=== PATIENT | male | born 1945 | race Caucasian/White ===

== ENCOUNTER 2017-04-06 15:03 | Emergency (ER) | payer BC ==
[~2017-04-06] VITALS: Ht 177.8 cm; Wt 97.4 kg
[~2017-04-06 15:03] MED LIST: ALL300 PO; ASPEC325 PO; ATOR10TA82 PO; DVN80 PO; SILD1TAB11 PO; TRIA0.1C55 TD
[2017-04-06 15:11] VITALS: TEMP 36.7; Ht 177.8 cm; Wt 97.4 kg
[2017-04-06] MEDS ORDERED: ACETAMINOPHEN 325 MG TAB PO STA (15:16)
[2017-04-06] MEDS ORDERED: KETOROLAC TROMETHAMINE 30 MG/ML VIAL IV STA (15:16)
[2017-04-06 16:12] LABS: HEMATOCRIT 44.5 % (42-52); HEMOGLOBIN 15.3 g/dL (14.0-18.0); MEAN CELL VOLUME 93.9 fL (80-100); MEAN CORPUSCULAR HEMOGLOBIN 32.3 pg (25-34); MEAN CORPUSCULAR HGB CONC 34.4 g/dl (32-36); MEAN PLATELET VOLUME 9.8 fL (7.4-10.4); PLATELET COUNT 190 K/uL (130-400); RED CELL DISTRIBUTION WIDTH CV 13.7 % (11.5-14.5); RED CELL DISTRIBUTION WIDTH SD 47.2 fL (36.4-46.3); WHITE BLOOD COUNT 8.26 K/uL (4.8-10.8)
--- NOTE | 2017-04-06 16:25 | EMERGENCY ROOM VISIT NOTE ---
History Report prepared by [place]: Berenice Kiran Under the Supervision of: Dr. Jaleel Mendez M.D. First contact with patient: 15:15 Chief Complaint: TESTICULAR PAIN Stated Complaint: SWOLLEN R TESTICLE History of Present Illness The patient is a 72 year old male who presents to the Emergency Room with complaints of constant right testicular pain starting 2 weeks ago. The patient has a history of hydrocele. 2 weeks ago, he started having increased swelling and pain to his right testicle. He has seen his doctor and has had an ultrasound and X-ray. He was on antibiotics for epididymitis to no significant relief. He was unable to sleep last night because of the pain. He currently rates his discomfort as a 9/10 in severity. He is also having pain down into his right leg. He denies any trauma. The pain does not worsen with urination. He has a history of kidney stones. His current pain is not as severe as his kidney stone. He was able to drive himself to the ED. He denies any fever or vomiting. Source of History: patient Onset: 2 weeks ago Position: other (right testicle) Symptom Intensity: 9/10 Quality: other (swelling, pain) Timing: constant Associated Symptoms: No fevers, No vomiting Note: Pt reports right leg pain. Review of Systems See HPI for pertinent positives & negatives. A total of 10 systems reviewed and were otherwise negative. Past Medical & Surgical Medical Problems: (1) Hydrocele (2) Kidney stone Family History Cancer FH: heart disease Hypertension Social History Smoking Status: Former Smoker Marital Status: Occupation Status: retired Current/Historical Medications Scheduled Allopurinol (Zyloprim *), 300 MG PO QAM Allopurinol (Allopurinol), 300 MG PO QAM Atorvastatin (Atorvastatin Calcium), 20 MG PO QAM Oxycodone HCl (Oxycodone HCl), 5 MG PO DAILY Sildenafil Citrate (Viagra), 25 MG PO PRN Valsartan (Valsartan), 320 MG PO DAILY Allergies Coded Allergies: NO KNOWN DRUG ALLERGIES (Verified Allergy, Unknown, ., 11/01/14) Peanut Butter Flavor (Unverified Allergy, Unknown, LIP AND EYE SWELLING, ) ALLERY TO PEANUT BUTTER ONLY OCCURS WHEN PT EATS PEANUT BUTTER FROM INDIVIDUAL SERVINGS OF PEANUT BUTTER Physical Exam Vital Signs Date Time Temp Pulse Resp B/P (MAP) Pulse Ox O2 Delivery O2 Flow Rate FiO2 04/06/17 18:34 66 159/87 96 04/06/17 17:09 63 144/75 96 Room Air 04/06/17 15:11 36.7 78 20 156/83 96 Room Air Physical Exam GENERAL: Patient is in no acute distress. HEENT: No acute trauma, normocephalic atraumatic, mucous membranes moist, no nasal congestion, no scleral icterus. NECK: No stridor, no adenopathy, no meningismus, trachea is midline. LUNGS: Clear to auscultation bilaterally, no wheeze, no rhonchi, breath sounds equal. HEART: Without murmurs gallops or rubs, regular rate and rhythm. ABDOMEN: Soft, nontender, bowel sounds positive, no hernias, no peritonitis. GROIN: No obvious hernia. Right testicle and right epididymis are swollen and tender. No scrotal cellulitis. EXTREMITIES: No cyanosis or edema, full range of motion of all the joints without pain or difficulty, no signs for acute trauma. NEUROLOGIC: Oriented x 3, no acute motor or sensory deficits, no focal weakness. SKIN: No rash, no jaundice, no diaphoresis. Medical Decision & Procedures ER Provider Diagnostic Interpretation: Radiology results as stated below per my review and radiologist interpretation: CT OF THE ABDOMEN AND PELVIS WITHOUT CONTRAST, STONE PROTOCOL CLINICAL HISTORY: Flank pain and hematuria. COMPARISON STUDY: None. TECHNIQUE: Helical axial images of the abdomen and pelvis were obtained without IV or oral contrast according to renal stone protocol. A dose lowering technique was utilized adhering to the principles of ALARA. FINDINGS: Unenhanced images of liver, spleen, adrenal glands and pancreas are unremarkable. There is a pancreatic parenchymal calcification. There is a diverticulum of the second portion of the duodenum. There is no biliary or pancreatic ductal dilatation. There is no hydronephrosis. There are numerous small bilateral renal calculi which measure up to 3 mm. There are no ureteral calculi and there is no hydronephrosis. A 6 cm water attenuation right renal lesion is suboptimally assessed on this unenhanced exam but favors a cyst. Subcentimeter water attenuation renal lesions are noted. This has minimal peripheral calcification. There is an intermediate attenuation 5.7 cm lesion arising from the midpole of the left kidney which has minimal peripheral or dependent calcification. No lymphadenopathy is present. The appendix is normal. There is no evidence for a bowel obstruction. No suspicious osseous lesions are noted. There is colonic diverticulosis without evidence for acute diverticulitis. A small fat-containing umbilical hernia is present. Sensitivity for detection of urothelial lesions is diminished on this unenhanced exam. IMPRESSION: 1. Bilateral nephrolithiasis. No ureteral calculi or hydronephrosis. 2. 5.7 cm lesion arising from the midpole of the left kidney which measures greater than water attenuation. This could reflect a complex cyst or solid renal lesion. A follow-up nonemergent renal ultrasound is recommended. 3. Normal appendix. No bowel obstruction. 4. Colonic diverticulosis without evidence for acute diverticulitis. Electronically signed by: Chris Mathis M.D. 04/06/2017 4:02 PM Dictated Date/Time: 04/06/2017 3:54 PM ULTRASOUND TESTES AND SCROTUM CLINICAL HISTORY: Right testicular swelling. COMPARISON STUDY: No priors. TECHNIQUE: Real-time, grayscale, and color Doppler sonography of the testes and scrotum is performed. Images are reviewed in the transverse and longitudinal planes. FINDINGS: The testes are normal in size and homogeneous in echotexture. The right testis measures 4.3 x 2.5 x 2.7 cm and the left testis measures 4.5 x 2.3 x 3.1 cm. No intratesticular mass is seen. Scattered microliths are incidentally noted on the right. Testicular blood flow is normal and symmetric. Normal Doppler waveforms are identified in both testes. The right epididymal head is enlarged and contains numerous cysts. The largest measures up to 3.1 cm. The left epididymal head measures 1.2 cm in length. A 5 mm cyst is noted in the left epididymal head. There is a small left-sided varicocele which measures up to 3 mm. No right-sided varicocele is seen. IMPRESSION: 1. No acute sonographic abdomen mild is identified in the scrotum. 2. There is a large right epididymal head cyst which measures up to 3.1 cm. 3. A small left-sided varicocele. Electronically signed by: Jaleel Magaña M.D. 04/06/2017 4:23 PM Dictated Date/Time: 04/06/2017 4:21 PM Laboratory Results 04/06/17 15:50 04/06/17 15:50 Test 04/06/17 15:50 04/06/17 16:30 Red Blood Count 4.74 M/uL (4.7-6.1) Mean Corpuscular Volume 93.9 fL (80-100) Mean Corpuscular Hemoglobin 32.3 pg (25-34) Mean Corpuscular Hemoglobin Concent 34.4 g/dl (32-36) RDW Standard Deviation 47.2 fL (36.4-46.3) RDW Coefficient of Variation 13.7 % (11.5-14.5) Mean Platelet Volume 9.8 fL (7.4-10.4) Anion Gap 9.0 mmol/L (3-11) Est Creatinine Clear Calc Drug Dose 96.5 ml/min Estimated GFR () 102.9 Estimated GFR (Non- 88.8 BUN/Creatinine Ratio 22.8 (10-20) Calcium Level 9.0 mg/dl (8.5-10.1) Urine Color YELLOW Urine Appearance CLEAR (CLEAR) Urine pH 6.5 (4.5-7.5) Urine Specific [place] 1.021 (1.000-1.030) Urine Protein NEG (NEG) Urine Glucose (UA) TRACE (NEG) Urine Ketones NEG (NEG) Urine Occult Blood NEG (NEG) Urine Nitrite NEG (NEG) Urine Bilirubin NEG (NEG) Urine Urobilinogen NEG (NEG) Urine Leukocyte Esterase NEG (NEG) Laboratory results reviewed by me. Medications Administered Medications (Trade) Dose Ordered Sig/Viola Route Start Time Stop Time Status Last Admin Dose Admin Ketorolac Tromethamine (Toradol Inj) 30 mg NOW STAT IV 04/06/17 15:16 04/06/17 15:22 DC 04/06/17 16:32 30 MG Acetaminophen (Tylenol Tab) 650 mg NOW STAT PO 04/06/17 15:16 04/06/17 15:22 DC 04/06/17 16:35 650 MG ED Course 1515: The patient was evaluated in room B11B. A complete history and physical exam was performed. 151: Acetaminophen 650 mg PO, Toradol Inj 30 mg IV. 1748: I reevaluated the patient. I updated him on the results. 175: I discussed the patient's case with Dr. Crespo, [facility]. She requests I speak with the other group. 175: I discussed the patient's case with Dr. Winters [facility]. He will see the patient as an outpatient tomorrow. 1811: Reevaluated the patient. Discussed results and discharge instructions: He verbalized understanding and agreement. The patient is ready for discharge. Medical Decision Differential diagnoses considered include epididymitis, hernia, hydrocele, varicocele, infection, ureteral stone, UTI. There is no leukocytosis or concerning anemia. No significant electrolyte abnormality or kidney failure. Urinalysis does not show hematuria or infection. Testicular ultrasound shows and epididymal cyst, no evidence for testicular torsion. Abdominal and pelvis CT shows stones within the kidneys, no ureteral stone. There was a lesion to the left kidney for which follow-up was recommended. The patient was given oral Tylenol and IV Toradol, he seems comfortable. I did speak with urology. The patient will be seen in the office tomorrow. Motrin, ice, rest were suggested. If worsening, he can return. At this point, the cause of the pain is unclear. Specialty follow-up is recommended. Medication Reconcilliation Current Medication List: was personally reviewed by me Blood Pressure Screening Patient's blood pressure: Elevated blood pressure Blood pressure disposition: Elevated BP felt to be situational Consults Time Called: 1746 Consulting Physician: Dr. Crespo [facility] Returned Call: 175 I discussed the patient's case with her. She requests I speak with the other group. Additional Consults: Time Called: 1755 Consulted Physician: Dr. Winters [facility] Returned Call: 175 Additional Comments: I discussed the patient's case with him. He will see the patient as an outpatient tomorrow. Impression Primary Impression: Right testicular pain Scribe Attestation The scribe's documentation has been prepared under my direction and personally reviewed by me in its entirety. I confirm that the note above accurately reflects all work, treatment, procedures, and medical decision making performed by me. Departure Information Dispostion Home / Self-Care Referrals Nicanor Ruby MD (PCP) Saeid Winters, Isidra.O. Forms HOME CARE DOCUMENTATION FORM, IMPORTANT VISIT INFORMATION, WORK / SCHOOL INSTRUCTIONS Patient Instructions My [facility] [employer] Additional Instructions motrin 600 mg 3x per day for 5 days ice to the area for 30 minutes on and 30 minutes off wear supportive underwear see urology tomorrow--call around 830 for an appt return if worsening be sure to have followup testing of the kidney as recommended
[2017-04-06 16:46] LABS: CREATININE 0.81 mg/dl (0.60-1.40)
[2017-04-06] MEDS ORDERED: OXYC-609 PO (16:57)
[2017-04-06] MEDS ORDERED: ALL300 PO (16:57)
[2017-04-06] MEDS ORDERED: LPT/20 PO (16:57)
[2017-04-06] MEDS ORDERED: VALS-59 PO (16:57)
--- NOTE | 2017-04-06 17:34 | DIAGNOSTIC IMAGING REPORT ---
CT OF THE ABDOMEN AND PELVIS WITHOUT CONTRAST, STONE PROTOCOL CLINICAL HISTORY: Flank pain and hematuria. COMPARISON STUDY: None. TECHNIQUE: Helical axial images of the abdomen and pelvis were obtained without IV or oral contrast according to renal stone protocol. A dose lowering technique was utilized adhering to the principles of ALARA. FINDINGS: Unenhanced images of liver, spleen, adrenal glands and pancreas are unremarkable. There is a pancreatic parenchymal calcification. There is a diverticulum of the second portion of the duodenum. There is no biliary or pancreatic ductal dilatation. There is no hydronephrosis. There are numerous small bilateral renal calculi which measure up to 3 mm. There are no ureteral calculi and there is no hydronephrosis. A 6 cm water attenuation right renal lesion is suboptimally assessed on this unenhanced exam but favors a cyst. Subcentimeter water attenuation renal lesions are noted. This has minimal peripheral calcification. There is an intermediate attenuation 5.7 cm lesion arising from the midpole of the left kidney which has minimal peripheral or dependent calcification. No lymphadenopathy is present. The appendix is normal. There is no evidence for a bowel obstruction. No suspicious osseous lesions are noted. There is colonic diverticulosis without evidence for acute diverticulitis. A small fat-containing umbilical hernia is present. Sensitivity for detection of urothelial lesions is diminished on this unenhanced exam. IMPRESSION: 1. Bilateral nephrolithiasis. No ureteral calculi or hydronephrosis. 2. 5.7 cm lesion arising from the midpole of the left kidney which measures greater than water attenuation. This could reflect a complex cyst or solid renal lesion. A follow-up nonemergent renal ultrasound is recommended. 3. Normal appendix. No bowel obstruction. 4. Colonic diverticulosis without evidence for acute diverticulitis. Electronically signed by: Chris Mathis M.D. 04/06/2017 4:02 PM Dictated Date/Time: 04/06/2017 3:54 PM
[2017-04-06 18:34] VITALS: BP 159/87; PULSE 66; O2SAT 96
== END 2017-04-06 18:36 | disposition home or self-care (01) ==
LOC: C.EDB 15:04
DX: N50.811 Right testicular pain (principal); Z87.442 Personal history of urinary calculi; Z80.9 Family history of malignant neoplasm, unspecified; Z82.49 Family history of ischemic heart disease and other diseases of the circulatory system; Z87.891 Personal history of nicotine dependence; Z79.899 Other long term (current) drug therapy

== ENCOUNTER → 2017-04-21 | Outpatient (CLI) | payer BC, OTHER ==
[~2017-04-21] MED LIST changes: -ASPEC325 PO; -ATOR10TA82 PO; -DVN80 PO; +LPT20 PO; +OPTIRAY 320 IV PRN; +OXYC-609 PO; -TRIA0.1C55 TD; +VALS-59 PO
--- NOTE | 2017-04-21 08:32 | DIAGNOSTIC IMAGING REPORT ---
ABD/PELVIS COMBO HISTORY: 72 years-old Male N28.89 Renal massvalid 04/16/17-05/16/17 Auth# [id number] E X0D E CT follow-up study to assess a 5.7 cm lesion of the interpolar left kidney. Bilateral nephrolithiasis with recent hematuria. COMPARISON: CT abdomen and pelvis 04/06/2017 TECHNIQUE: Multiple axial CT images of the abdomen and pelvis were obtained both with and without the use of 120 mL Optiray 320 IV contrast utilizing hematuria protocol. A dose lowering technique was used consistent with the principals of KARISHMA. FINDINGS: Mild dependent subsegmental right basilar atelectasis or scarring. There is no pneumoperitoneum or pneumatosis identified. Imaged inferior cardiac chambers are unremarkable. The spleen, gallbladder, liver, pancreas and adrenal glands are within normal limits. Punctate calcification is seen within the distal pancreatic body. Noncontrast scan demonstrates multiple bilateral nephrolithiasis which are nonobstructing measuring up to 4 mm. Mild nonspecific perinephric stranding. No ureteral calculi identified. There are multiple subcentimeter low attenuating lesions of the kidneys bilaterally suggesting renal cysts, however most of which are too small to characterize. There is a 5.7 x 2.8 cm cyst with some layering calcification along its dependent surface as noted on image 175 series 5. Again, this lesion does not demonstrate water attenuation on the noncontrast scan however no appreciable enhancement identified. There is a large cyst of the interpolar right kidney, 6.1 x 6.0 cm which also does not demonstrate enhancement or water attenuation suggesting a mildly complex cyst. There is a thin internal septation along the anterolateral portion of the lesion seen on image 160 series 7 which appears to enhance. No additional enhancing lesions of the kidneys identified. No urothelial mass lesions identified. Ureters appear to be normal in caliber. Circumferential wall thickening of a partially collapsed or bladder is noted with mild perivesicular stranding. Prostate is mildly enlarged. Mild to moderate plaquing of the aorta. Nonspecific mildly enlarged periportal lymph nodes measure up to 1.6 x 1.2 cm. Small duodenal diverticulum. No bowel obstruction. Moderate colonic diverticulosis without CT evidence of acute diverticulitis. Normal appendix. Small fat filled. No focal hernia, diastases 1.5 cm. The bones appear intact. No suspicious lytic or blastic bony lesions. Multilevel discogenic degenerative changes and facet arthrosis. IMPRESSION: 1. Mildly complex cyst with layering calcification involves the lateral aspect of the interpolar left kidney measuring up to 5.7 cm. No associated enhancement or suspicious features. 2. Mildly complex cyst of the interpolar right kidney measures up to 6.1 cm and demonstrates a thin enhancing internal septation along its inferolateral margin. Follow-up CT in 6 months recommended to further evaluate. 3. Bilateral nephrolithiasis without ureteral calculi or hydronephrosis identified. 4. Colonic diverticulosis without acute diverticulitis. The above report was generated using voice recognition software. It may contain grammatical, syntax or spelling errors. Electronically signed by: Berry Ignacio M.D. 04/21/2017 8:30 AM Dictated Date/Time: 04/21/2017 8:18 AM
== END | disposition home or self-care (01) ==
LOC: C.CTS 07:41
PROVIDERS: ATTEND Urology
DX: N28.1 Cyst of kidney, acquired (principal); N20.0 Calculus of kidney; K57.90 Diverticulosis of intestine, part unspecified, without perforation or abscess without bleeding

== ENCOUNTER → 2017-11-06 | Outpatient (CLI) | payer BC ==
[~2017-11-06] MED LIST changes: -OPTIRAY 320 IV PRN
--- NOTE | 2017-11-06 13:06 | DIAGNOSTIC IMAGING REPORT ---
(HIPOLITO/BLAD)RETROPERITON COMP HISTORY: Epididymitis; Renal cyst, acquired COMPARISON: CT 04/21/2017 FINDINGS: Right kidney: Maximum dimension 12.7 cm. Several cysts measuring 25.5 cm. 2 small nonobstructing cortical calcifications. Normal corticomedullary differentiation and cortical thickness. Left kidney: Maximum dimension 13.2 cm. No evidence for hydronephrosis. Several cysts measuring up to 5.5 cm. Normal corticomedullary differentiation and cortical thickness. Bladder: No bladder wall thickening. The bilateral ureteral jets were identified. IMPRESSION: 1. Bilateral simple renal cyst. 2. Several nonobstructing renal cortical calcifications. 3. No evidence for hydronephrosis. The above report was generated using voice recognition software. It may contain grammatical, syntax or spelling errors. Electronically signed by: José Miguel Hernandez M.D. 11/06/2017 1:05 PM Dictated Date/Time: 11/06/2017 1:01 PM
== END | disposition home or self-care (01) ==
LOC: C.ULTR 12:04
PROVIDERS: ATTEND Urology
DX: N28.1 Cyst of kidney, acquired (principal); N28.89 Other specified disorders of kidney and ureter; N45.1 Epididymitis

== ENCOUNTER → 2017-11-18 | Outpatient (CLI) | payer BC | END | disposition home or self-care (01) | LOC: C.PATHSPEC 17:21 | PROVIDERS: ATTEND Urology | DX: N28.1 Cyst of kidney, acquired (principal) ==

== ENCOUNTER 2018-05-27 18:48 | Inpatient (IN) ==
--- NOTE | 2018-05-27 19:08 | Emergency Department Note ---
Entered by Michelle Sorensen acting as a scribe for History of Present Illness General Chief complaint: Fall Time Seen by Provider: 05/27/18 18:50 Source: patient Mode of arrival: EMS Limitations: no limitations History of Present Illness Provider complaint: fall Onset (ago): minute(s) (POLISHER HAND) Location: knee and right Pain Consistency: + other (episode) Quality: + other (fall) Associated symptoms: no syncope The patient is a 73 year old male who presents to the Emergency Room via EMS following a fall that occurred prior to arrival. The patient reports that he was coming down a slope when he suddenly slipped on ice and fell. He states that he twisted his right leg going down, and has had right knee pain since. He rates his knee pain a 5/10. He notes that he was crawling and rolling on the ground and was unable to get up, so he called his spouse who then called EMS. The patient denies losing consciousness during this episode as well as any head injuries. He also denies any neck pain but notes he does have mild lower back pain. The patient states that he has a history of psoriasis, hypertension, hyp erlipidemia and gout. He denies taking any blood thinners. Home Medications Home Medications Medication Instructions Recorded Confirmed Type allopurinol [Zyloprim] 300 mg PO DAILY 05/27/18 05/27/18 History aspirin 325 mg PO DAILY 05/27/18 05/27/18 History atorvastatin 20 mg PO QPM 05/27/18 05/27/18 History diphenhydramine HCl [Benadryl] 50 mg PO UD PRN 05/27/18 05/27/18 History losartan [Cozaar] 100 mg PO DAILY 05/27/18 05/27/18 History prednisone 40 mg PO UD PRN 05/27/18 05/27/18 History sildenafil 25 mg PO DAILY PRN 05/27/18 05/27/18 History tamsulosin [Flomax] 0.4 mg PO DAILY 05/27/18 05/27/18 History triamcinolone acetonide 1 applic TOPICAL BID PRN 05/27/18 05/27/18 History vitamin B complex 1 tab PO DAILY 05/27/18 05/27/18 History Allergies Allergy/AdvReac Type Severity Reaction Status Date / Time No Known Drug Allergies Allergy Unknown . Verified 05/27/18 19:54 Peanut Butter Flavor Allergy Unknown LIP AND Uncoded 05/27/18 19:54 EYE SWELLING Past Med/Surg History Medical History Gout (Chronic) Hyperlipidemia (Chronic) Hypertension (Chronic) Psoriasis (Chronic) Family history non-contributory Family History Other Family history non-contributory Social History Current Living Situation: Family Feels Safe at Home: No Smoking Status: Never smoker Review of Systems See HPI for pertinent positives & negatives. and A total of 10 systems reviewed and were otherwise negative Physical Exam Vital Signs Vital Signs - 24 hr 05/27/18 18:57 05/27/18 18:58 05/27/18 19:01 Temperature 36.8 C Temperature Source Oral Sepsis Recent Fever Within 48 Hours No Sepsis Action Taken by Nursing No Action Required Pulse Rate 72 71 71 Pulse Rate from SpO2 Sensor 72 71 Respiratory Rate 18 16 18 Blood Pressure 141/91 H 141/91 H Blood Pressure Mean 107 107 Pulse Oximetry 98 97 97 Oxygen Delivery Method Room Air 05/27/18 19:10 05/27/18 19:20 05/27/18 19:30 Temperature Temperature Source Sepsis Recent Fever Within 48 Hours Sepsis Action Taken by Nursing Pulse Rate 71 77 72 Pulse Rate from SpO2 Sensor 71 78 72 Respiratory Rate 22 17 19 Blood Pressure Blood Pressure Mean Pulse Oximetry 96 97 98 Oxygen Delivery Method 05/27/18 19:40 Temperature Temperature Source Sepsis Recent Fever Within 48 Hours Sepsis Action Taken by Nursing Pulse Rate 69 Pulse Rate from SpO2 Sensor 68 Respiratory Rate 17 Blood Pressure Blood Pressure Mean Pulse Oximetry 97 Oxygen Delivery Method GENERAL: Patient is in no acute distress. HEENT: No acute trauma, normocephalic atraumatic, mucous membranes moist, no nasal congestion, no scleral icterus. NECK: No stridor, no adenopathy, no meningismus, trachea is midline. No posterior c-spine tenderness. LUNGS: Clear to auscultation bilaterally, no wheeze, no rhonchi, breath sounds equal. HEART: Without murmurs gallops or rubs, regular rate and rhythm. ABDOMEN: Soft, nontender, bowel sounds positive, no hernias, no peritonitis. EXTREMITIES: Obvious swelling about the right knee, appears to be a step-off at the insertion of the quadriceps tendon on the right. Patella seems low riding, right ankle hip and right foot are non-tender. NEUROLOGIC: Oriented x 3, no acute motor or sensory deficits, no focal weakness. SKIN: No rash, no jaundice, no diaphoresis. Course 1850: Past medical records reviewed. The patient was evaluated in room C12B, and a complete history and physical examination were performed. 2012: I reviewed the patients case with Dr. [facility]. He accepted the patient into his care and will evaluate him for further management. Administered Medications Medical Decision Making Differential Diagnosis Differential Diagnosis includes: intracranial injury, cervical spine injury, right knee fracture, right femur fracture, right hip fracture, quadricep tear, and patellar tendon tear. Medical Records Attestation: I reviewed the patient's medical records. Home Medications Current Medication List: was personally reviewed by me Laboratory Data Attestation: I reviewed the patient's lab results. Result diagrams: 05/27/18 19:20 05/27/18 19:20 Lab Results 05/27/18 05/27/18 Range/Units 19:20 19:20 WBC 8.38 (4.8-10.8) K/uL RBC 4.65 L (4.7-6.1) M/uL Hgb 15.1 (14.0-18.0) g/dL Hct 43.9 (42-52) % MCV 94.4 (80-100) fL MCH 32.5 (25-34) pg MCHC 34.4 (32-36) g/dL RDW Std Deviation 46.6 H (36.4-46.3) fL RDW Coeff of Samir 13.6 (11.5-14.5) % Plt Count 170 (130-400) K/uL MPV 10.3 (7.4-10.4) fL Sodium 141 (136-145) mmol/L Potassium 3.7 (3.5-5.1) mmol/L Chloride 109 H (98-107) mmol/L Carbon Dioxide 25 (21-32) mmol/L Anion Gap 7.0 (3-11) BUN 16 (7-18) mg/dl Creatinine 0.98 (0.6-1.4) mg/dl Est Cr Clr Drug Dosing 80.1 ml/min Est GFR ( Amer) 88.3 Est GFR (Non-Af Amer) 76.2 BUN/Creatinine Ratio 16.1 (10-20) Glucose 109 H (70-99) mg/dl Calcium 8.6 (8.5-10.1) mg/dl Imaging Data Radiologist's Impression: Radiology results as stated below per my review and the radiologist's interpretation: XR knee RT 2V routine CLINICAL HISTORY: fall, pain trauma. Pain. COMPARISON: None. DISCUSSION: Several small avulsions from the superior patella. This is associated with local soft tissue edematous change. Medial and lateral joint compartments are well preserved. T10 IMPRESSION: Several small avulsions from the superior patella with localized soft tissue edematous change. The above report was generated using voice recognition software. It may contain grammatical, syntax or spelling errors. Electronically signed by: José Miguel Hernandez M.D. 05/27/2018 7:58 PM XR hip RT 2-3V w pelvis CLINICAL HISTORY: fall, pain pain COMPARISON: None. DISCUSSION: The bones and joint spaces appear intact. There is no evidence of fracture, dislocation or bony disease. Moderate degenerative change. IMPRESSION: No acute bony abnormality. Moderate degenerative change. The above report was generated using voice recognition software. It may contain grammatical, syntax or spelling errors. Electronically signed by: José Miguel Hernandez M.D. 05/27/2018 8:06 PM XR femur RT 2V routine CLINICAL HISTORY: fall, pain pain COMPARISON: None. DISCUSSION: The bones and joint spaces appear intact. There is no evidence of fracture, dislocation or bony disease. Several small avulsions from the superior patella which have been described previously. IMPRESSION: No acute process of the femur. Several avulsions from the superior patella which have been described previously. The above report was generated using voice recognition software. It may contain grammatical, syntax or spelling errors. Electronically signed by: José Miguel Hernandez M.D. 05/27/2018 8:07 PM Blood Pressure Blood Pressure Findings: Elevated blood pressure Blood Pressure Disposition: further management by hospitalist DARLIN Estrada There is no leukocytosis or anemia. No significant electrolyte abnormality or kidney failure. Films of the pelvis, right hip, femur and knee were done. There are avulsion fractures to the superior patella consistent with potential quadriceps tendon rupture. No fracture to the pelvis, right hip or femur. Patient received a dose of IV Toradol for pain. He was placed in a right knee immobilizer. Clinically the patient appeared to have a right patellar tendon rupture. This seems to be confirmed by film. I spoke to orthopedics, the patient will be brought into the hospital for surgery tomorrow. Patient does not appear to have suffered any other injuries. He is neurovascular intact distally in the right lower extremity. Impression & Plan Quadriceps tendon rupture, Pain of right knee after injury, Fall Discharge Plan Visit Data Chief Complaint: Fall ED Provider: Jaleel Mendez Discharge Problem: Quadriceps tendon rupture, Pain of right knee after injury, Fall Patient Disposition: Being Evaluated by Surgeon Discharge Instructions Interventions: ED Discharge Assessment Last Done: 05/27/18 21:17 Discharge Problem: Quadriceps tendon rupture Qualifiers: Encounter type: initial encounter Laterality: right Qualified Code(s): S76.111A - Strain of right quadriceps muscle, fascia and tendon, initial encounter Fall Qualifiers: Encounter type: initial encounter Qualified Code(s): W19.XXXA - Unspecified fall, initial encounter The scribe's documentation has been prepared under my direction and personally reviewed by me in its entirety. I confirm that the note above accurately reflects all work, treatment, procedures, and medical decision making performed by me.
[2018-05-27 19:33] LABS: Hematocrit (blood only) 43.9 % (42-52); Hemoglobin 15.1 g/dL (14.0-18.0); Mean Corpuscular Hgb Conc 34.4 g/dL (32-36); Mean Corpuscular Volume 94.4 fL (80-100); Mean Platelet Volume 10.3 fL (7.4-10.4); Platelet Count 170 K/uL (130-400); RDW Coefficient of Variation 13.6 % (11.5-14.5); RDW Standard Deviation 46.6 fL (36.4-46.3); Red Blood Count 4.65 M/uL (4.7-6.1); White Blood Count 8.38 K/uL (4.8-10.8)
[2018-05-27 19:52] LABS: BUN Creatinine Ratio 16.1 (10-20); Calcium 8.6 mg/dl (8.5-10.1); Creatinine Clr Calc Pharmacy 80.1 ml/min; Est GFR (African American) 88.3; Est GFR (Non-African American) 76.2; Potassium 3.7 mmol/L (3.5-5.1)
--- NOTE | 2018-05-27 19:59 | XRay Report ---
XR knee RT 2V routine CLINICAL HISTORY: fall, pain trauma. Pain. COMPARISON: None. DISCUSSION: Several small avulsions from the superior patella. This is associated with local soft tis magan edematous change. Medial and lateral joint compartments are well preserved. T10 IMPRESSION: Several small avulsions from the superior patella with localized soft tissue edematous ch ivone. The above report was generated using voice recognition software. It may contain grammatical, syntax or spelling errors. Electronically signed by: José Miguel Hernandez M.D. 05/27/2018 7:58 PM
--- NOTE | 2018-05-27 20:07 | XRay Report ---
XR hip RT 2-3V w pelvis CLINICAL HISTORY: fall, pain pain COMPARISON: None. DISCUSSION: The bones and joint spaces appear intact. There is no evidence of fracture, dislocation o r bony disease. Moderate degenerative change. IMPRESSION: No acute bony abnormality. Moderate degenerative change. The above report was generated using voice recognition software. It may contain grammatical, syntax or spelling errors. Electronically signed by: José Miguel Hernandez M.D. 05/27/2018 8:06 PM
--- NOTE | 2018-05-27 20:08 | XRay Report ---
XR femur RT 2V routine CLINICAL HISTORY: fall, pain pain COMPARISON: None. DISCUSSION: The bones and joint spaces appear intact. There is no evidence of fracture, dislocation o r bony disease. Several small avulsions from the superior patella which have been described previousl y. IMPRESSION: No acute process of the femur. Several avulsions from the superior patella which have bee n described previously. The above report was generated using voice recognition software. It may contain grammatical, syntax or spelling errors. Electronically signed by: José Miguel Hernandez M.D. 05/27/2018 8:07 PM
[2018-05-27] MEDS ORDERED: KETOROLAC TROMETHAMINE 15 MG/ML VIAL IV STA (20:46)
[2018-05-27] MEDS ORDERED: ATORVASTATIN 20 MG TAB PO SCH (21:43)
[2018-05-27] MEDS ORDERED: ONDANSETRON INJ 2 MG/ML 2 ML VIAL IV PRN (21:43)
[2018-05-27] MEDS ORDERED: METOCLOPRAMIDE HCL INJ 5 MG/ML 2 ML VIAL IV PRN (21:43)
--- NOTE | 2018-05-27 22:33 | XRay Report ---
XR chest 2V routine CLINICAL HISTORY: pre-op eval preoperative evaluation COMPARISON STUDY: No previous studies for comparison. FINDINGS: The bones soft tissues and hemidiaphragms are normal. The cardiomediastinal silhouette is n ormal. The lungs are clear. The pulmonary vasculature is normal. IMPRESSION: Negative chest. The above report was generated using voice recognition software. It may contain grammatical, syntax or spelling errors. Electronically signed by: José Miguel Hernandez M.D. 05/27/2018 10:31 PM
[2018-05-27] MEDS: SODIUM CHLORIDE 0.9% 1000ML 1,000 ML IV SCH (22:47)
[2018-05-27] MEDS ORDERED: Nursing to Pharmacy Communication ONE (22:59)
[2018-05-27] MEDS ORDERED: HYDROmorphone INJ 0.5 MG/0.5 ML SYR IV PRN (23:18)
[2018-05-28] MEDS ORDERED: CEFAZOLIN 2000MG 2,000 MG/15 ML SYR IV SCH (06:00)
--- NOTE | 2018-05-28 06:15 | History & Physical Report ---
Date of Service May 28, 2018 Assessment & Plan (1) Quadriceps tendon rupture: We will proceed with an open distal quadriceps tendon repair. Postoperatively he will be placed in a knee immobilizer. He will be weightbearing as tolerated as long as he is in the knee immobilizer. I plan to discharge him to home after the surgery with oral pain medications. Encounter type: initial encounter Laterality: right Qualified Code(s): S76.111A - Strain of right quadriceps muscle, fascia and tendon, initial encounter Present on Admission?: Yes History of Present Illness Primary Care Provider: Nicanor Ruby MD Ed is a pleasant 73-year-old male who is planning on going on a cruise on Thursday. He is been planning a cruise for the last year. Unfortunately slipped and fell on the ice hyperflexing his right knee. He went to the emergency room and x-rays and clinical examination were diagnostic for a right quadriceps tendon rupture. He was admitted to the orthopedic service for operative fixation the following day. Allergies Allergy/AdvReac Type Severity Reaction Status Date / Time No Known Drug Allergies Allergy Unknown . Verified 05/27/18 19:54 peanut Allergy Unknown Swelling Verified 05/27/18 21:52 of Lip/Tongue/Throat Home Medications Home Medications Medication Instructions Recorded Confirmed Type allopurinol [Zyloprim] 300 mg PO DAILY 05/27/18 05/27/18 History aspirin 325 mg PO DAILY 05/27/18 05/27/18 History atorvastatin 20 mg PO QPM 05/27/18 05/27/18 History diphenhydramine HCl [Benadryl] 50 mg PO UD PRN 05/27/18 05/27/18 History losartan [Cozaar] 100 mg PO DAILY 05/27/18 05/27/18 History prednisone 40 mg PO UD PRN 05/27/18 05/27/18 History sildenafil 25 mg PO DAILY PRN 05/27/18 05/27/18 History tamsulosin [Flomax] 0.4 mg PO DAILY 05/27/18 05/27/18 History triamcinolone acetonide 1 applic TOPICAL BID PRN 05/27/18 05/27/18 History vitamin B complex 1 tab PO DAILY 05/27/18 05/27/18 History Past Med/Surg History Medical History Gout (Chronic) Hyperlipidemia (Chronic) Hypertension (Chronic) Psoriasis (Chronic) Family history non-contributory Family History Other Family history non-contributory Social History Communication Ability: Effective Tv Production Assistant Required: No Beliefs That Will Affect Care: None Current Living Situation: Spouse Other Information That Helps Us Care for You: No Feels Safe at Home: Yes Safety Concerns: Feels Safe At This Time Smoking Status: Former smoker Hx Alcohol Use: Yes Hx Substance Use: No Review of Systems All systems reviewed & are unremarkable except as noted in HPI & below Physical Exam Vital Signs (Past 24 Hours): Last Vital Signs Temp 36.7 C 05/27/18 23:33 Pulse 66 05/27/18 23:33 Resp 16 05/27/18 23:33 BP 134/74 05/27/18 23:33 Pulse Ox 96 05/27/18 23:33 Musculoskeletal: On physical examination of the right quad he is in a knee immobilizer. I took the knee immobilizer down and he has an obvious defect at is distal quadriceps tendon. There are no abrasions lesions or lacerations of the skin. He has active motion of his ankle and all of his toes. His sensation is intact. Results & Data Laboratory Results H & H 05/27/18 Range/Units 19:20 Hgb 15.1 (14.0-18.0) g/dL Hct 43.9 (42-52) % Diagnostic Findings X-rays of the right knee show small avulsion fractures off the superior pole of the patella. There appears to be a patella [place]. There is obvious soft tissue damage in the area of the quadriceps tendon. Medications Administered Sodium Chloride (Nss 1000ml) 1,000 mls @ 80 mls/hr IV .[id number] MARITA Stop: 06/26/18 21:42 Last Admin: 05/27/18 22:47 Dose: 80 mls/hr Documented by: [id number]
[2018-05-28] MEDS ORDERED: ROPIVACAINE 0.5% 5 MG/ML 30 ML VIAL ONE (07:21)
[2018-05-28] MEDS ORDERED: TAMSULOSIN HCL 0.4 MG CAP PO SCH (09:00)
[2018-05-28] MEDS ORDERED: ALLOPURINOL 300 MG TAB PO SCH (09:00)
[2018-05-28] MEDS ORDERED: ATORVASTATIN 20 MG TAB PO SCH (09:00)
[2018-05-28] MEDS ORDERED: LOSARTAN POTASSIUM 50 MG TAB PO SCH (09:00)
[2018-05-28] MEDS: SODIUM CHLORIDE 0.9% 1000ML 1,000 ML IV SCH (11:13)
--- NOTE | 2018-05-28 11:19 | History & Physical Bridge Note ---
Date of Service May 28, 2018 History & Physical Bridge Note I have examined the patient, reviewed the History & Physical and in the interval since the performance of the History & Physical I have noted the following changes of clinical significance: no changes noted
--- NOTE | 2018-05-28 12:14 | Anesthesiology Consultation ---
Date of Service May 28, 2018 Assessment & Plan (1) Encounter for pre-operative examination: Chart Review Chart Review: Acceptable Risk for Surgery and Patient NOT seen in Pre Admission Testing Consults Requested none NPO Date Last Intake of Fluids: 05/27/18 Time Last Intake of Fluids: 23:00 Date Last Intake of Solids: 05/27/18 Time Last Intake of Solids: 23:00 History Surgery Operation Date: 05/28/18 12:20 Proposed Procedures p Quadriceps Repair - Berhane Kapadia DO Height/Weight Height: 5 ft 10 in Weight: 94.7 kg Allergies Allergy/AdvReac Type Severity Reaction Status Date / Time No Known Drug Allergies Allergy Unknown . Verified 05/28/18 11:54 peanut Allergy Unknown Swelling Verified 05/28/18 11:53 of Lip/Tongue/Throat Medications Home Medications Medication Instructions Recorded Confirmed Last Taken allopurinol [Zyloprim] 300 mg PO DAILY 05/27/18 05/27/18 Unknown aspirin 325 mg PO DAILY 05/27/18 05/27/18 Unknown atorvastatin 20 mg PO QPM 05/27/18 05/27/18 Unknown diphenhydramine HCl [Benadryl] 50 mg PO UD PRN 05/27/18 05/27/18 Unknown losartan [Cozaar] 100 mg PO DAILY 05/27/18 05/27/18 Unknown prednisone 40 mg PO UD PRN 05/27/18 05/27/18 Unknown sildenafil 25 mg PO DAILY PRN 05/27/18 05/27/18 Unknown tamsulosin [Flomax] 0.4 mg PO DAILY 05/27/18 05/27/18 Unknown triamcinolone acetonide 1 applic TOPICAL BID PRN 05/27/18 05/27/18 Unknown vitamin B complex 1 tab PO DAILY 05/27/18 05/27/18 Unknown Active Medications Generic Name Dose Route Start Last Admin Trade Name Freq PRN Reason Stop Dose Admin Sodium Chloride 1,000 mls @ 80 mls/hr 05/27/18 21:43 05/28/18 11:13 Nss 1000ml IV 06/26/18 21:42 80 mls/hr .[id number] MARITA Administration Past Medical History Medical History Gout (Chronic) Hyperlipidemia (Chronic) Hypertension (Chronic) Psoriasis (Chronic) Family history non-contributory Past Family History Family History Other Family history non-contributory Past Surgical History Surgical History H/O hernia repair Past Anesthesia History No Hx of Anesthesia Complications and No Family Hx of Anesthesia Complications History of PONV No Motion Sickness Screening History of Motion Sickness: No Social History Smoking Status: Former smoker Do You Dip or Chew Tobacco: No Hx Alcohol Use: Yes Alcohol type: hard liquor alcohol intake frequency: 3 or more drinks per day (Last drink thursday) Hx Substance Use: No Physical Exam Vital Signs Last Vital Signs Temp 37 C 05/28/18 11:58 Pulse 79 05/28/18 11:58 Resp 20 05/28/18 11:58 BP 162/86 H 05/28/18 11:58 Pulse Ox 96 05/28/18 11:58 Testing Laboratory Results 05/27/18 19:20 05/27/18 19:20
[2018-05-28] MEDS ORDERED: ONDANSETRON INJ 2 MG/ML 2 ML VIAL IV PRN (12:21)
[2018-05-28] MEDS ORDERED: HYDROmorphone INJ 1 MG/ML SYRINGE IV PRN (12:21)
[2018-05-28] MEDS ORDERED: ePHEDrine sulfate 50 MG/ML AMP IV PRN (12:21)
[2018-05-28] MEDS ORDERED: ATROPINE SULFATE 0.1 MG/ML 10ML SYR IV PRN (12:21)
[2018-05-28] MEDS ORDERED: fentaNYL citrate 100 MCG/2 ML VIAL IV PRN (12:21)
[2018-05-28] MEDS ORDERED: LIDOCAINE HCL 2% 2 ML VIAL/AMP(20MG/ML) INFIL ONE (12:40)
[2018-05-28] MEDS ORDERED: PROPOFOL IV EMULSION 10 MG/ML 20 ML VIAL IV ONE (12:40)
[2018-05-28] MEDS ORDERED: MIDAZOLAM HCL 1 MG/ML 2ML VIAL ONE (12:40)
[2018-05-28] MEDS ORDERED: fentaNYL citrate 100 MCG/2 ML VIAL ONE ×2 (12:40→13:58)
[2018-05-28] MEDS ORDERED: BUPIVACAINE 0.5 % 5 MG/1 ML MPF 30ML VIAL ONE (13:10)
[2018-05-28] MEDS ORDERED: POVIDONE-IODINE OP SOLN 30 ML BTL ONE (13:57)
[2018-05-28] MEDS ORDERED: ONDANSETRON INJ 2 MG/ML 2 ML VIAL ONE (14:20)
[2018-05-28] MEDS ORDERED: ROCURONIUM BROMIDE 10 MG/ML 5 ML VIAL ONE (14:20)
[2018-05-28] MEDS ORDERED: NEOSTIGMINE METHYLSULFATE 5 MG/5 ML SYR ONE (14:20)
[2018-05-28] MEDS ORDERED: DEXAMETHASONE SOD INJ 4 MG/ML VIAL ONE (14:20)
[2018-05-28] MEDS ORDERED: GLYCOPYRROLATE 0.2 MG/ML VIAL ONE (14:20)
[2018-05-28] MEDS ORDERED: HYDROmorphone INJ 2 MG/ML SYR/VIAL ONE (15:15)
--- NOTE | 2018-05-28 15:30 | Operative Report ---
Post Operative Report Pre & Post Diagnosis Operation Date: 05/28/18 12:20 Pre-Op Diagnosis: RIGHT QUAD RUPTURE Post-Op Diagnosis: RIGHT QUAD RUPTURE Procedure Operation Date: 05/28/18 12:20 Actual Procedures p Right Quadriceps Tendon Repair(Right) - Berhane Kapadia DO Surgeon Berhane Kapadia DO Advisory Intern Berhane Al PAC Estimated Blood Loss 20 Findings Consistent with Post-Op Diagnosis Specimens None Complications none Disposition Disposition: Recovery Room Indications Ricky is a pleasant 73-year-old male who tripped and fell yesterday on a hyperflexed right knee. He went to the emergency room. X-rays and clinical examination were diagnostic for right distal quadriceps tendon rupture. He was admitted to the hospital for operative fixation. Description of Procedure On May 28, 2018 he was brought down from the hospital room to the preoperative holding area. The operative extremity was identified and signed. He was given a preoperative antibiotic and taken back to the operating room. He was laid on the table in the supine position. He was put under general anesthesia. The right knee was then prepped and draped in sterile fashion. A timeout was done. The patient and the operative extremity was properly identified. A midline incision was made directly over the distal quadriceps tendon. Dissection was taken down to the patella and there was an obvious rupture of the distal quad. A large hemarthrosis was evacuated. The quad was properly dissected out. 2 #5 FiberWire sutures were passed up and down the quadriceps tendon in a Krakw fashion. This left 2 tails in the center in one tail mediall y and one tail laterally. 3 holes were drilled in the patella. 2 central sutures were passed through the middle hole and one suture was passed medially and the other laterally. The tails were then tied. This gave a nice repair of the quadriceps tendon. A #2 FiberWire suture was used to repair the anterior soft tissue. 0 Prolene suture was used to repair the retinaculum. The knee was then flexed to about 95 degrees before there was tension on the repair. The patella tracked in the center of the knee. The wound was then irrigated. A 3- minute diluted Betadine 9 lavage was then used. The Betadine was then irrigated out. Hemostasis was controlled. Skin was then closed with 2-0 Vicryl, 30V lock suture, and sarai. He was then placed in a soft dressing and a knee immobilizer. He was then extubated and transferred to a hospital bed. He was taken to the postanesthesia care unit in stable condition. He tolerated the procedure well. I attest to the content of the Intraoperative Record and any orders documented therein. Any exceptions are noted below.
[2018-05-28] MEDS ORDERED: OXYCODONE HCL IR 5 MG TAB (IMMEDIATE RELEASE) PO PRN (16:56)
[2018-05-28] MEDS ORDERED: SODIUM CHLORIDE 0.9% 1000ML 1,000 ML IV SCH (16:56)
[2018-05-28] MEDS ORDERED: BISACODYL 10 MG SUPP PR PRN (16:56)
[2018-05-28] MEDS ORDERED: NALOXONE HCL 0.4 MG/1 ML VIAL/CARP IV PRN (16:56)
[2018-05-28] MEDS ORDERED: MAGNESIUM HYDROXIDE SUSP 30 ML UDC PO PRN (16:56)
--- NOTE | 2018-05-28 17:04 | Anesthesiology Progress Note ---
Date of Service May 28, 2018 Anesthesia Post Procedure Vital Signs Vital Signs: Temp Pulse Pulse Resp BP BP Pulse Ox 05/28/18 16:35 69 22 158/80 H 94 05/28/18 16:30 68 13 142/92 H 94 05/28/18 16:28 37.4 C 93 05/28/18 16:25 71 20 154/93 H 95 05/28/18 16:20 73 21 152/89 H 94 05/28/18 16:15 73 26 H 144/90 H 94 05/28/18 16:10 73 18 154/87 H 94 05/28/18 16:05 71 14 150/80 H 93 05/28/18 16:00 72 15 160/81 H 92 05/28/18 15:55 78 14 161/86 H 92 05/28/18 15:50 71 17 151/84 H 94 05/28/18 15:45 71 18 148/86 H 95 05/28/18 15:40 71 15 149/86 H 95 05/28/18 15:35 78 17 161/95 H 97 05/28/18 11:58 37 C 79 20 162/86 H 96 05/28/18 11:26 36.8 C 79 18 145/81 H 94 05/28/18 07:02 36.4 C L 71 18 147/88 H 95 05/27/18 23:33 36.7 C 66 16 134/74 96 05/27/18 21:46 36.9 C 74 18 147/68 H 98 05/27/18 19:40 69 17 97 05/27/18 19:30 72 19 98 05/27/18 19:20 77 17 97 05/27/18 19:10 71 22 96 05/27/18 19:01 71 18 97 05/27/18 18:58 71 16 141/91 H 97 05/27/18 18:57 36.8 C 72 18 141/91 H 98 Pain Intensity Right Knee: Pain Intensity: 3 Notes Mental Status: alert / awake / arousable and participated in evaluation Patient Amnestic to Procedure: Yes Nausea / Vomiting: adequately controlled Pain: adequately controlled Airway Patency, RR, SpO2: stable & adequate BP & HR: stable & adequate Hydration State: stable & adequate Anesthetic Complications: no major complications apparent
[2018-05-28] MEDS: KETOROLAC TROMETHAMINE 15 MG/ML VIAL IV SCH ×2 (19:03→23:18)
[2018-05-28] MEDS ORDERED: DOCUSATE SODIUM 100 MG CAP PO SCH (21:00)
[2018-05-28] MEDS ORDERED: SENNA 8.6 MG TAB PO SCH (21:00)
[2018-05-28] MEDS: ACETAMINOPHEN 500 MG TAB PO SCH (21:07)
[2018-05-28] MEDS: CEFAZOLIN 2000MG 2,000 MG/15 ML SYR IV SCH (21:07)
[2018-05-29] MEDS: SODIUM CHLORIDE 0.9% 1000ML 1,000 ML IV SCH (00:09)
[2018-05-29] MEDS: CEFAZOLIN 2000MG 2,000 MG/15 ML SYR IV SCH (06:05)
[2018-05-29] MEDS: KETOROLAC TROMETHAMINE 15 MG/ML VIAL IV SCH (06:06)
[2018-05-29] MEDS: ACETAMINOPHEN 500 MG TAB PO SCH (06:06)
--- NOTE | 2018-05-29 08:47 | Orthopedic Progress Note ---
Date of Service May 29, 2018 Assessment & Plan (1) Quadriceps tendon rupture: At this point is doing fairly well. He is going to be seen by physical therapy this morning to make sure he stable with ambulation. He can be weightbearing as tolerated in the knee immobilizer at all times. I am going to keep him on Xarelto for DVT prophylaxis mainly because he is going to be traveling over the next week. Mostly I give him some oxycodone for pain control. He can follow-up with orthopedics in 2 weeks. I am going to discharge him to home this morning. Present on Admission?: Yes Subjective Ricky was seen and examined at bedside this morning. Overall is doing very well. Is not having much pain in the leg. He was up and ambulate with a walker to the bathroom. He has no complaints. Physical Exam Vital Signs (Past 24 Hours): Last Vital Signs Temp 37 C 05/29/18 08:29 Pulse 79 05/29/18 08:29 Resp 16 05/29/18 08:29 BP 147/80 H 05/29/18 08:29 Pulse Ox 93 05/29/18 08:29 Musculoskeletal: On physical examination of the right knee, the dressing is clean and dry. The knee immobilizer is in place. He has active dorsiflexion and plantar flexion of his right ankle. Sensation is intact throughout. (1) Quadriceps tendon rupture Encounter type: initial encounter Laterality: right Qualified Code(s): S76.111A - Strain of right quadriceps muscle, fascia and tendon, initial encounter
--- NOTE | 2018-05-29 08:49 | Discharge Summary ---
Date of Service May 29, 2018 Admission HPI Per Admitting Provider Ed is a pleasant 73-year-old male who is planning on going on a cruise on Thursday. He is been planning a cruise for the last year. Unfortunately slipped and fell on the ice hyperflexing his right knee. He went to the emergency room and x-rays and clinical examination were diagnostic for a right quadriceps tendon rupture. He was admitted to the orthopedic service for operative fixation the following day. Specialty Data Orthopedic H & H 05/27/18 Range/Units 19:20 Hgb 15.1 (14.0-18.0) g/dL Hct 43.9 (42-52) % Discharge Data Consultations 05/27/18 21:43 Consult Case Management - Discharge Planning Routine 05/28/18 16:56 Consult Case Management - Discharge Planning Routine Procedures Performed Operation Date: 05/28/18 12:20 Actual Procedures p Right Quadriceps Tendon Repair(Right) - Berhane Kapadia DO Hospital Course (1) Quadriceps tendon rupture: On May 28, 2018 Ricky is brought down from his hospital room to the preoperative holding area and underwent a right quadriceps tendon repair without complication. Postoperatively he was placed in a knee immobilizer and discharged back to the general orthopedic floors. I started him on Xarelto for DVT prophylaxis. Overall his hospital course was relatively uneventful. On postop day #1 he was doing well. His pain was well controlled. He was seen by physical therapy and was able to ambulate well in the knee immobilizer. He was then discharged home with Xarelto for DVT prophylaxis and oxycodone for pain control. He will follow-up with orthopedics in 2 weeks. Discharge Instructions Home Medications Medication Instructions Recorded Confirmed allopurinol [Zyloprim] 300 mg PO DAILY 05/27/18 05/27/18 aspirin 325 mg PO DAILY 05/27/18 05/27/18 atorvastatin 20 mg PO QPM 05/27/18 05/27/18 diphenhydramine HCl [Benadryl] 50 mg PO UD PRN 05/27/18 05/27/18 losartan [Cozaar] 100 mg PO DAILY 05/27/18 05/27/18 prednisone 40 mg PO UD PRN 05/27/18 05/27/18 sildenafil 25 mg PO DAILY PRN 05/27/18 05/27/18 tamsulosin [Flomax] 0.4 mg PO DAILY 05/27/18 05/27/18 triamcinolone acetonide 1 applic TOPICAL BID PRN 05/27/18 05/27/18 vitamin B complex 1 tab PO DAILY 05/27/18 05/27/18 Previous Rx's Medication Instructions Recorded oxycodone 5 - 10 mg PO Q4H PRN #40 tab 05/29/18 rivaroxaban [Xarelto] 10 mg PO DAILY #28 tab 05/29/18
[2018-05-29] MEDS ORDERED: MULTIVITAMIN TAB PO SCH (09:00)
[2018-05-29] MEDS ORDERED: RIVAROXABAN 10 MG TABLET PO SCH (09:00)
== END 2018-05-29 10:10 | disposition home or self-care (01) | DRG 502 ==
LOC: ED 18:48 → 3W 20:39

== ENCOUNTER 2019-05-11 12:57 | Observation (INO) ==
[2019-05-11] MEDS ORDERED: SODIUM CHLORIDE 0.9% 500 ML IV SCH (14:00)
--- NOTE | 2019-05-11 14:11 | XRay Report ---
XR chest 1V portable CLINICAL HISTORY: cough COMPARISON STUDY: 05/27/2018 FINDINGS: The cardiac and mediastinal contours are normal. There is no evidence of focal pulmonary co nsolidation. There is no evidence of failure. No pleural effusions are visualized.[ IMPRESSION: No active disease in the chest. ACT 112: Negative or not required by law. Electronically signed by: Amish Momin M.D. 05/11/2019 2:10 PM
[2019-05-11 14:30] LABS: Basophils # (auto) 0.02 K/uL (0-0.2); Basophils % (auto) 0.2 %; Eosinophils # (auto) 0.05 K/uL (0-0.5); Eosinophils % (auto) 0.5 %; Hematocrit (blood only) 38.2 % (42-52); Hemoglobin 12.8 g/dL (14.0-18.0); Immature Granulocytes # (auto) 0.03 K/uL (0.00-0.02); Immature Granulocytes % (auto) 0.3 %; Lymphocytes # (auto) 1.18 K/uL (1.2-3.4); Lymphocytes % (auto) 12.1 %; Mean Corpuscular Hemoglobin 32.1 pg (25-34); Mean Corpuscular Hgb Conc 33.5 g/dL (32-36); Mean Corpuscular Volume 95.7 fL (80-100); Mean Platelet Volume 10.3 fL (7.4-10.4); Monocytes # (auto) 0.73 K/uL (0.11-0.59); Monocytes % (auto) 7.5 %; Neutrophils # (auto) 7.77 K/uL (1.4-6.5); Neutrophils % (auto) 79.4 %; Platelet Count 210 K/uL (130-400); RDW Coefficient of Variation 13.6 % (11.5-14.5); Red Blood Count 3.99 M/uL (4.7-6.1); White Blood Count 9.78 K/uL (4.8-10.8)
[2019-05-11 14:42] LABS: Partial Thromboplastin Ratio 0.8; Partial Thromboplastin Time 22.8 Seconds (21.0-31.0); Prothrombin Time 10.4 Seconds (9.0-12.0)
[2019-05-11 14:51] LABS: Alanine Aminotransferase 30 U/L (12-78); Albumin Level 3.8 gm/dl (3.4-5.0); Aspartate Aminotransferase 13 U/L (15-37); BUN Creatinine Ratio 34.5 (10-20); Blood Urea Nitrogen 42 mg/dl (7-18); Carbon Dioxide 27 mmol/L (21-32); Chloride 110 mmol/L (98-107); Creatinine Clr Calc Pharmacy 62.7 ml/min; Est GFR (African American) 67.3; Glucose 118 mg/dl (70-99); Potassium 4.7 mmol/L (3.5-5.1); Sodium 141 mmol/L (136-145)
[2019-05-11 14:57] LABS: Albumin Globulin Ratio 1.2 (0.9-2); Alkaline Phosphatase 53 U/L (45-117); Bilirubin,Total 0.5 mg/dl (0.2-1); Globulin 3.1 gm/dl (2.5-4.0); Total Protein 6.9 gm/dl (6.4-8.2); Troponin I < 0.015 ng/ml (0-0.045)
--- NOTE | 2019-05-11 15:25 | Emergency Department Note ---
Entered by Mague Auguste acting as a scribe for Shaun Streeter DO History of Present Illness General Chief complaint: Hypotension Time Seen by Provider: 05/11/19 13:40 Source: patient History of Present Illness Provider complaint: dark stools Onset (ago): day(s) 3 Pain Consistency: + other (persistent) Relieved By: + none Exacerbated By: + none Associated symptoms: + diaphoresis and + nausea/vomiting (+nausea) The patient is a 74 year old male who presents to the Emergency Room with complaints of dark black stools for the past 3 days. The patient notes that he went to his PCP this morning where he started to become diaphoretic and nauseous. He states that they reported his blood pressure was 53/40. He notes that they called EMS and gave him fluid on the way to the ED. Per the ED records, the patient had a colonoscopy on 04/26/19 where they removed small polyps and showed diverticulosis. Home Medications Home Medications Medication Instructions Recorded Confirmed Type allopurinol [Zyloprim] 300 mg PO DAILY 05/27/18 05/11/19 History atorvastatin 20 mg PO QPM 05/27/18 05/11/19 History losartan [Cozaar] 100 mg PO DAILY 05/27/18 05/11/19 History vitamin B complex 1 tab PO DAILY 05/27/18 05/11/19 History Allergies Allergy/AdvReac Type Severity Reaction Status Date / Time No Known Drug Allergies Allergy Unknown . 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 and A total of 10 systems reviewed and were otherwise negative Physical Exam Vital Signs Vital Signs - 24 hr 05/11/19 13:07 05/11/19 14:00 05/11/19 14:15 Temperature 36.6 C Temperature Source Oral Pulse Rate 89 Pulse Rate [Right Finger] 92 H Respiratory Rate 20 18 Respiratory Effort / Characteristics Non-Labored Spontaneous Respiratory Depth Normal Normal Respiratory Pattern Regular Blood Pressure 98/50 L Blood Pressure [Right Arm] 124/91 Blood Pressure Mean 66 Blood Pressure Mean [Right Arm] 102 Blood Pressure Position [Right Arm] Lying Pulse Oximetry 99 98 99 Oxygen Delivery Method Room Air Room Air Room Air Sepsis Recent Fever Within 48 Hours No Sepsis New/Unexplained Change in Mental Status No Sepsis Action Taken by Nursing No Action Required CONSTITUTIONAL/VITAL SIGNS: Reviewed / noted above. GENERAL: Non-toxic in appearance. INTEGUMENTARY: Warm, dry, and [place]. HEAD: Normocephalic. EYES: without scleral icterus or trauma. ENT/OROPHARYNX: clear and moist. LYMPHADENOPATHY/NECK: Is supple without lymphadenopathy or meningismus. RESPIRATORY: Lungs clear and equal. CARDIOVASCULAR: Regular rate and rhythm. GI/ABDOMEN: Soft and nontender. No organomegaly or pulsatile mass. No rebound or guarding. Normal bowel sounds. EXTREMITIES: Warm and well perfused. RECTAL: Black stool. Coag positive. BACK: No CVA tenderness. NEUROLOGICAL: Intact without focal deficits. PSYCHIATRIC: normal affect. MUSCULOSKELETAL: Normally developed with good muscle tone. Course Course 1346: The patient was evaluated in room B8, and a complete history and physical examination were performed. 1521: I reviewed the patient's case with Dee Harper. Dr. Dat Harper Hospitalist will evaluate the patient for further management. Administered Medications Discontinued Medications Sodium Chloride (Nss) 500 mls @ 999 mls/hr IV .Q31M MARITA Stop: 05/11/19 14:30 Last Infusion: 05/11/19 14:46 Dose: 0 mls/hr Documented by: [id number] Admin: 05/11/19 14:11 Dose: 999 mls/hr Documented by: [id number] Medical Decision Making Differential Diagnosis Differential diagnosis: Etiologies such as diverticulosis, AVM, coagulopathy, colitis, inflammatory bowel disease, malignancy, Olga-Bearden tear, esophagitis, peptic ulcer disease, variceal bleed, gastritis, epistaxis, fissure, hemorrhoids, aswell as others were entertained Medical Records Attestation: I reviewed the patient's medical records. Home Medications Current Medication List: was personally reviewed by me Laboratory Data Attestation: I reviewed the patient's lab results. Result diagrams: 05/11/19 14:08 05/11/19 14:08 Lab Results 05/11/19 05/11/19 05/11/19 Range/Units 14:00 14:08 14:08 WBC (4.8-10.8) K/uL RBC (4.7-6.1) M/uL Hgb (14.0-18.0) g/dL Hct (42-52) % MCV (80-100) fL MCH (25-34) pg MCHC (32-36) g/dL RDW Std Deviation (36.4-46.3) fL RDW Coeff of Samir (11.5-14.5) % Plt Count (130-400) K/uL MPV (7.4-10.4) fL Immature Gran % (Auto) % Neut % (Auto) % Lymph % (Auto) % Nobles % (Auto) % Eos % (Auto) % Baso % (Auto) % Immature Gran # (Auto) (0.00-0.02) K/uL Neut # (Auto) (1.4-6.5) K/uL Lymph # (Auto) (1.2-3.4) K/uL Nobles # (Auto) (0.11-0.59) K/uL Eos # (Auto) (0-0.5) K/uL Baso # (Auto) (0-0.2) K/uL PT (9.0-12.0) Seconds INR (0.9-1.1) APTT (21.0-31.0) Seconds PTT Ratio Sodium 141 (136-145) mmol/L Potassium 4.7 (3.5-5.1) mmol/L Chloride 110 H (98-107) mmol/L Carbon Dioxide 27 (21-32) mmol/L Anion Gap 4.0 (3-11) BUN 42 H (7-18) mg/dl Creatinine 1.22 (0.6-1.4) mg/dl Est Cr Clr Drug Dosing 62.7 ml/min Est GFR ( Amer) 67.3 Est GFR (Non-Af Amer) 58.0 BUN/Creatinine Ratio 34.5 H (10-20) Glucose 118 H (70-99) mg/dl Calcium 9.0 (8.5-10.1) mg/dl Total Bilirubin 0.5 (0.2-1) mg/dl AST 13 L (15-37) U/L ALT 30 (12-78) U/L Alkaline Phosphatase 53 (45-117) U/L Troponin I < 0.015 (0-0.045) ng/ml Total Protein 6.9 (6.4-8.2) gm/dl Albumin 3.8 (3.4-5.0) gm/dl Globulin 3.1 (2.5-4.0) gm/dl Albumin/Globulin Ratio 1.2 (0.9-2) POC Stool Occult Blood Positive A (Negative) Blood Type O Positive Antibody Screen NEGATIVE 05/11/19 05/11/19 Range/Units 14:08 14:08 WBC 9.78 (4.8-10.8) K/uL RBC 3.99 L (4.7-6.1) M/uL Hgb 12.8 L (14.0-18.0) g/dL Hct 38.2 L (42-52) % MCV 95.7 (80-100) fL MCH 32.1 (25-34) pg MCHC 33.5 (32-36) g/dL RDW Std Deviation 48.0 H (36.4-46.3) fL RDW Coeff of Samir 13.6 (11.5-14.5) % Plt Count 210 (130-400) K/uL MPV 10.3 (7.4-10.4) fL Immature Gran % (Auto) 0.3 % Neut % (Auto) 79.4 % Lymph % (Auto) 12.1 % Nobles % (Auto) 7.5 % Eos % (Auto) 0.5 % Baso % (Auto) 0.2 % Immature Gran # (Auto) 0.03 H (0.00-0.02) K/uL Neut # (Auto) 7.77 H (1.4-6.5) K/uL Lymph # (Auto) 1.18 L (1.2-3.4) K/uL Nobles # (Auto) 0.73 H (0.11-0.59) K/uL Eos # (Auto) 0.05 (0-0.5) K/uL Baso # (Auto) 0.02 (0-0.2) K/uL PT 10.4 (9.0-12.0) Seconds INR 1.0 (0.9-1.1) APTT 22.8 (21.0-31.0) Seconds PTT Ratio 0.8 Sodium (136-145) mmol/L Potassium (3.5-5.1) mmol/L Chloride (98-107) mmol/L Carbon Dioxide (21-32) mmol/L Anion Gap (3-11) BUN (7-18) mg/dl Creatinine (0.6-1.4) mg/dl Est Cr Clr Drug Dosing ml/min Est GFR ( Amer) Est GFR (Non-Af Amer) BUN/Creatinine Ratio (10-20) Glucose (70-99) mg/dl Calcium (8.5-10.1) mg/dl Total Bilirubin (0.2-1) mg/dl AST (15-37) U/L ALT (12-78) U/L Alkaline Phosphatase (45-117) U/L Troponin I (0-0.045) ng/ml Total Protein (6.4-8.2) gm/dl Albumin (3.4-5.0) gm/dl Globulin (2.5-4.0) gm/dl Albumin/Globulin Ratio (0.9-2) POC Stool Occult Blood (Negative) Blood Type Antibody Screen Imaging Data Radiologist's Impression: Radiology results as stated below per my review and the radiologist's interpretation: XR chest 1V portable CLINICAL HISTORY: cough COMPARISON STUDY: 05/27/2018 FINDINGS: The cardiac and mediastinal contours are normal. There is no evidence of focal pulmonary consolidation. There is no evidence of failure. No pleural effusions are visualized.[ IMPRESSION: No active disease in the chest. ACT 112: Negative or not required by law. Electronically signed by: Amish Momin M.D. 05/11/2019 2:10 PM ECG Data Attestation: I personally reviewed and interpreted this ECG as follows: Indication: + weakness Rate (beats per minute): 88 Rhythm: + normal sinus ECG Intervals/blocks: + Normal QT-c ECG ST segments: no ST elevation ECG Findings: no PVCs Blood Pressure Blood Pressure Findings: Elevated blood pressure Blood Pressure Disposition: did not require urgent referral MDM Narrative This is a 74-year-old male who presents to the ED with a chief complaint of black tarry stools for the past several days as well as a hypotensive episode at the PCPs office today with a blood pressure 58/43. The patient states that he has been feeling dizzy at home and with walking this morning. He has noticed a black tarry stools for 3 days. He was sent by Dr. Ruby's office for further evaluation. The patient has black tarry stools that are guaiac positive today. He has not had any chest pains or shortness of breath. His exam was otherwise unremarkable. His hemoglobin today is 12.8. Chest x-ray was negative for acute disease. BUN is 42 which is suggestive of an upper GI bleed. EKG shows a normal sinus rhythm at a rate of 88. The patient was given IV fluids by EMS. He was also given some additional IV fluids here. His blood pressure is stable. He will be seen by the hospitalist for further evaluation and care Impression & Plan Acute upper gastrointestinal bleeding, Hypotensive episode Discharge Plan Visit Data Chief Complaint: Hypotension ED Provider: Shaun Streeter Problem: Acute upper gastrointestinal bleeding, Hypotensive episode Patient Disposition: Being Evaluated by Hospitalist Forms Stand Alone Forms: My [facility] [address] Prescriptions Prescriptions: No Action allopurinol [Zyloprim] 300 mg tablet 300 mg PO DAILY RF: 0 atorvastatin 20 mg tablet 20 mg PO QPM RF: 0 vitamin B complex Tablet 1 tab PO DAILY RF: 0 losartan [Cozaar] 100 mg tablet 100 mg PO DAILY RF: 0 Referrals Referrals: Nicanor Ruby MD [Primary Care Provider] - The scribe's documentation has been prepared under my direction and personally reviewed by me in its entirety. I confirm that the note above accurately reflects all work, treatment, procedures, and medical decision making performed by me.
[2019-05-11] MEDS ORDERED: PANTOprazole 80 MG in DEXTROSE 5% 100 ML IV SCH (16:00)
--- NOTE | 2019-05-11 16:04 | History & Physical Report ---
Date of Service May 11, 2019 Assessment & Plan (1) Melena: (2) Acute upper gastrointestinal bleeding: Pt is 74 y/o M with PMH HTN, dyslipidemia, gout, prediabetes, essential tremor presented to ER with C/O melena x 3 days. Today with dizziness and reported hypotension of 54/38 at PCP office. Received IVF by EMS In ER afebrile, P: 89-92, BP: 98/50 up to 124/91 after IVF, R: 20, 99% on RA. No leukocytosis. H/H: 12.8/38 (Hgb: 15 in 03/2019), BUN: 42, Cr: 1.2, Heme positive stool Suspect secondary to ETOH and aspirin use -BP improved in ER after given 500ml NSS -NPO for now -PPI bolus and drip -IVF -Type and cross and hold -Repeat H&H -GI consult, Tosin MENDOZA aware -CBC, BMP in am (3) Hypertension: Hypotensive in PCP office today. Improved in ER after IVF -Monitor closely -Hold losartan currently (4) Alcohol use: Denies history alcohol withdrawal, seizures or DTs -Librium, Ativan withdrawal protocol -Monitor for withdrawal -Banana bag -Alcohol cessation discussed (5) Hyperlipidemia: -Hold statin for now while npo (6) Gout: -hold allopurinol for tomorrow while npo DVT Prophylaxis -SCDs Full Code as per discussion with pt Follows with Dr Ruby for routine care Pt was seen and care coordinated with Dr Atwood. See addendum History of Present Illness Chief Complaint: Melena Primary Care Provider: Nicanor Ruby MD Pt is 74 y/o M with PMH HTN, dyslipidemia, gout, prediabetes, essential tremor presented to ER with C/O melena x 3 days. States several days ago had loose stool and 3 days ago took Imodium. After he took Imodium he noticed black tarry stools. Reports had dizziness this morning. Pt was seen in PCP office today and was found to be hypotensive with BP 54/38. Reported pt was given NSS by EMS and upon ER arrival BP: 98/50. Pt denies any abdominal pain, vomiting. Reports takes Aspirin 325mg 3-4 times a week. Also drinks 8 ounces liquor daily. Drinks 1 can cola daily. Today had smoothie for breakfast, nothing to eat since. Denies history alcohol withdrawal, withdrawal seizures, DT's. Denies fever/chills, diaphoresis, SCHMIDT, syncope, vision changes, neck pain, CP, SOB, orthopnea, palpitations, cough, sore throat, choking, otalgia, rhinorrhea, abdominal pain, paresthesias, weakness, extremity weakness, extremity edema, rashes, urinary symptoms. H/O Colonoscopy 04/26/2019: several polyps removed H/O EGD in 2012: Erosive gastropathy. Likely secondary to Aspirin use. Allergies Allergy/AdvReac Type Severity Reaction Status Date / Time No Known Drug Allergies Allergy Unknown . Verified 05/11/19 14:35 peanut Allergy Unknown Swelling Verified 05/11/19 14:35 of Lip/Tongue/Throat pineapple Allergy Unknown Unverified 05/11/19 14:35 Home Medications Home Medications Medication Instructions Recorded Confirmed Type allopurinol [Zyloprim] 300 mg PO DAILY 05/27/18 05/11/19 History atorvastatin 20 mg PO QPM 05/27/18 05/11/19 History losartan [Cozaar] 100 mg PO DAILY 05/27/18 05/11/19 History vitamin B complex 1 tab PO DAILY 05/27/18 05/11/19 History Past Med/Surg History Medical History (Updated 05/11/19 @ 16:27 by Dee Buckley PA-C) Gout (Chronic) Hyperlipidemia (Chronic) Hypertension (Chronic) Psoriasis (Chronic) Surgical History (Updated 05/11/19 @ 16:29 by Dee Buckley PA-C) H/O hernia repair History of colonoscopy History of esophagogastroduodenoscopy (EGD) Hx of tonsillectomy Family History (Updated 05/11/19 @ 16:28 by Dee Buckley PA-C) Other Alzheimer disease Asthma Social History (Updated 05/11/19 @ 16:29 by Dee Buckley PA-C) Preferred Language: Yi Communication Ability: Effective 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 Beliefs That Will Affect Care: None marital status: Current Living Situation: Spouse Other Information That Helps Us Care for You: No Feels Safe at Home: Yes Safety Concerns: Feels Safe At This Time Smoking Status: Former smoker Smoking End Date: 1993 ; Second Hand Exposure: No ; Hx Alcohol Use: Yes Alcohol type: hard liquor Alcohol Intake Frequency: Daily Hx Substance Use: No Review of Systems Review of Systems: All systems reviewed & are unremarkable except as noted in HPI & below Physical Exam Physical Exam: General: no distress, WDWN Head: normocephalic, atraumatic Eyes: PERRL, EOM's intact, conjunctiva non-injected, anicteric ENT: normal inspection external ears, nose, mucous membranes mildly dry Neck: supple, trachea midline Lungs: clear, no respiratory distress, no wheezing/rhonchi/rales CV: RRR, no murmur, no pretibial edema Abd: normal BS, soft, non-tender Ext: no cyanosis, no calf tenderness Neuro: A&O x 3, no focal deficits noted, normal affect Skin: warm, dry Results & Data Vital Signs (Past 12 Hours) Vital Signs Temp Pulse Pulse Resp BP BP Pulse Ox 05/11/19 14:15 92 H 18 124/91 99 05/11/19 14:00 98 05/11/19 13:07 36.6 C 89 20 98/50 L 99 Laboratory Results Short CBC 05/11/19 Range/Units 14:08 WBC 9.78 (4.8-10.8) K/uL Hgb 12.8 L (14.0-18.0) g/dL Hct 38.2 L (42-52) % Plt Count 210 (130-400) K/uL BMP 05/11/19 14:08 Sodium 141 Potassium 4.7 Chloride 110 H Carbon Dioxide 27 BUN 42 H Creatinine 1.22 Glucose 118 H Calcium 9.0 Cardiac Enzymes 05/11/19 Range/Units 14:08 Troponin I < 0.015 (0-0.045) ng/ml Liver Function 05/11/19 Range/Units 14:08 Total Bilirubin 0.5 (0.2-1) mg/dl AST 13 L (15-37) U/L ALT 30 (12-78) U/L Alkaline Phosphatase 53 (45-117) U/L Albumin 3.8 (3.4-5.0) gm/dl Diagnostic Findings CXR: IMPRESSION: No active disease in the chest. Code Status & VTE Plan VTE Prophylaxis Plan VTE Prophylaxis will be ordered: Yes Supervising Physician Co-Signing Physician Notes I saw this patient with the physician web production assistant, I participated in the history, physical, review of systems, and physical exam. I reviewed the medications with the patient and the physician web production assistant and helped reconcile the medications. I helped take a detailed family and social history as well. I formulated the assessment and plan personally with the physician web production assistant and went over it with the patient. ROS-No Headache, No Visual Changes, No Nausea, No Vomiting, No Fever, No Chills, No Neck Pain or Stiffness, No Chest Pain, No Palpitations, No SOB, No COSME, No Cough, No Sputum, No Wheezing, No Abdominal Pain, No Diarrhea, No Hematemesis, No Hemoptysis, No Unexpected Weight Loss, No Flank pain, No Melena, No Hematochezia, No Frequency, No Urgency, No Burning, No Hematuria, No Rashes, No Diaphoresis. Appetite is Normal Physical Exam Gen-AAO x 3, NAD, Afebrile Head-NCAT, EOMI, PERRLA, Anicteric Sclera, No Posterior Pharyngeal Erythema Neck-Supple, No JVD, No Thyromegaly, No Masses, No LAD, No Bruits Lungs-Clear to Auscultation Bilaterally, No Rales, No Rhonchi, No Wheezing, No Crepitus Chest-No S4, +S1, +S2, No S3, No Murmurs, No Rubs, No Gallops, No Ectopy Abdomen-Soft, Bowel Sounds Present, Non Tender, Non Distended, No Hepatomegaly, No Splenomegaly, No Palpable Masses, No Rebound, No Rigidity, No Guarding Musculoskeletal-Full Range of Motion Bilaterally, No CVAT Extremities-No Cyanosis, No Clubbing, No Edema Nuero-Cranial Nerves II-XII grossly intact, Motor WNL, DTRs WNL, Strength WNL, Non Focal Psych-Normal Mood
--- NOTE | 2019-05-11 16:07 | Gastrointestinal Consultation ---
Date of Consultation May 11, 2019 Assessment & Plan (1) Melena: 74 year old male admitted from the ED for hypotensive episode, ongoing dark black stools x 72 hours. He is awake, alert and oriented answering questions appropriately. He adamently denies any hematemesis, coffee ground emes is or BRBPR. HGB 12.8 from baseline 15 w/ BUN elevation Ok for clear liquids today Strict NPO after night EGD 05/12/2019 IV PPI bolus and drip No NSAIDs Trend H&H Monitor and document all GI output Transfuse HGB < 8 ETOH cessation was recommended ETOH withdrawal protocol Thank you for allowing us to participate in the care of this patient. Please call with any acute changes, questions or concerns. Please see addendum below with additional recommendation from my supervising physician. Present on Admission?: Yes Supervising Physician Co-Signing Physician Notes I have seen and examined the patient and discussed the management with KELLY Yip. 74 yo male with a history of htn, hl, advised to come to the ER from PCP's office after pre-syncopal episode earlier today. Work-up in the ER showing he was initially hypotensive, hgb with 3 gram drop from baseline (hgb 12 range), slight bun rise. Significant history of 8 oz liquor nightly, asa 325 mg po bid at least 4 times a week for the past few weeks. Labs reviewed EKG reviewed Plan for EGD tomorrow for evaluation of melena, IV PPI overnite. Clear liquid diet this evening, then NPO after midnite. Alcohol withdrawal protocol. Further recommendations as above Naima Sommers MD History of Present Illness Reason for Consultation: melena Requesting Physician: Angelic Attending Physician: Angelic History of Present Illness 74 year old male with history of dyslipidemia, HTN, skin CA who presents from PCP office w/ concern for active GIB, reported hypotensive episode in PCP office today. Pt was seen and evaluated, chart reviewed. Family at bedside. Notes that about three days ago he noted dark, black stools. This started Thursday, semi- formed black, tarry stools. Thursday he had about 4/5 episodes of black stools. Today, grew concerned w/ ongoing dark stools and went to see PCP. No BRBPR. No UGI symptoms like gerd, regurgitation, dysphagia, pain but does report some nausea. Denies any hematemesis, coffee ground emesis. No fever, chills, CP, SOB ETOH 8 shots daily x years NSAIDs 2/3 ASA 3/4 times daily EGD 2011:Normal oropharynx.Normal esophagus.Erosive gastropathy. This was biopsied. Most likely fromASA use. Normal examined duodenum. Colonoscopy 2011: Diverticulosis in the sigmoid colon and in the descending colon.The examination was otherwise normal on direct and retroflexion views Colonoscopy 2019: One small polyp at 70 cm proximal to the anus, removedwith a cold snare. One small polyp at 50 cm proximal to the anus, removedwith a cold snareOne diminutive polyp at 40 cm proximal to the anus, removed with a jumbo cold forceps. Resected and retrieved. Diverticulosis in the sigmoid colon. Allergies Allergy/AdvReac Type Severity Reaction Status Date / Time No Known Drug Allergies Allergy Unknown . Verified 05/11/19 14:35 peanut Allergy Unknown Swelling Verified 05/11/19 14:35 of Lip/Tongue/Throat pineapple Allergy Unknown Unverified 05/11/19 14:35 Home Medications Home Medications Medication Instructions Recorded Confirmed Type allopurinol [Zyloprim] 300 mg PO DAILY 05/27/18 05/11/19 History atorvastatin 20 mg PO QPM 05/27/18 05/11/19 History losartan [Cozaar] 100 mg PO DAILY 05/27/18 05/11/19 History vitamin B complex 1 tab PO DAILY 05/27/18 05/11/19 History Patient History Medical History Family history non-contributory Gout (Chronic) Hyperlipidemia (Chronic) Hypertension (Chronic) Psoriasis (Chronic) Surgical History H/O hernia repair Family History Other Family history non-contributory Social History Communication Ability: Effective Electromechanic Required: No Beliefs That Will Affect Care: None marital status: Current Living Situation: Spouse Feels Safe at Home: Yes Smoking Status: Never smoker Second Hand Exposure: No ; Hx Alcohol Use: Yes Alcohol type: hard liquor Hx Substance Use: No Review of Systems Constitutional: no fever, no chills and no fatigue Respiratory: no cough, no dyspnea and no wheezing Cardiovascular: no chest pain, no radiating jaw, neck or arm pain and no dyspnea Gastrointestinal: + melena; no abdominal pain, no heartburn, no nausea, no coffee ground emesis, no dysphagia and no blood in stools Physical Exam Constitutional: well developed and well nourished; no acute distress and not ill appearing Neck: normal visual inspection Respiratory: normal respiratory effort, lungs clear to auscultation Cardiovascular: Rate/Rhythm: regular rate and regular rhythm Gastrointestinal (Abdomen): normal bowel sounds, soft, nontender, no hepatosplenomegaly Skin: no rashes, warm and dry Results & Data ([facility]) Vital Signs (Past 12 Hours) Vital Signs Temp Pulse Pulse Resp BP BP Pulse Ox 05/11/19 14:15 92 H 18 124/91 99 05/11/19 14:00 98 05/11/19 13:07 36.6 C 89 20 98/50 L 99 Laboratory Results 05/11/19 05/11/19 05/11/19 Range/Units 14:08 14:08 14:08 WBC 9.78 (4.8-10.8) K/uL RBC 3.99 L (4.7-6.1) M/uL Hgb 12.8 L (14.0-18.0) g/dL Hct 38.2 L (42-52) % MCV 95.7 (80-100) fL MCH 32.1 (25-34) pg MCHC 33.5 (32-36) g/dL RDW Std Deviation 48.0 H (36.4-46.3) fL RDW Coeff of Samir 13.6 (11.5-14.5) % Plt Count 210 (130-400) K/uL MPV 10.3 (7.4-10.4) fL Immature Gran % (Auto) 0.3 % Neut % (Auto) 79.4 % Lymph % (Auto) 12.1 % [place] % (Auto) 7.5 % Eos % (Auto) 0.5 % Baso % (Auto) 0.2 % Immature Gran # (Auto) 0.03 H (0.00-0.02) K/uL Neut # (Auto) 7.77 H (1.4-6.5) K/uL Lymph # (Auto) 1.18 L (1.2-3.4) K/uL [place] # (Auto) 0.73 H (0.11-0.59) K/uL Eos # (Auto) 0.05 (0-0.5) K/uL Baso # (Auto) 0.02 (0-0.2) K/uL PT 10.4 (9.0-12.0) Seconds INR 1.0 (0.9-1.1) APTT 22.8 (21.0-31.0) Seconds PTT Ratio 0.8 Sodium (136-145) mmol/L Potassium (3.5-5.1) mmol/L Chloride (98-107) mmol/L Carbon Dioxide (21-32) mmol/L Anion Gap (3-11) BUN (7-18) mg/dl Creatinine (0.6-1.4) mg/dl Est Cr Clr Drug Dosing ml/min Est GFR ( Amer) Est GFR (Non-Af Amer) BUN/Creatinine Ratio (10-20) Glucose (70-99) mg/dl Calcium (8.5-10.1) mg/dl Total Bilirubin (0.2-1) mg/dl AST (15-37) U/L ALT (12-78) U/L Alkaline Phosphatase (45-117) U/L Troponin I (0-0.045) ng/ml Total Protein (6.4-8.2) gm/dl Albumin (3.4-5.0) gm/dl Globulin (2.5-4.0) gm/dl Albumin/Globulin Ratio (0.9-2) POC Stool Occult Blood (Negative) Blood Type O Positive Antibody Screen NEGATIVE 05/11/19 05/11/19 Range/Units 14:08 14:00 WBC (4.8-10.8) K/uL RBC (4.7-6.1) M/uL Hgb (14.0-18.0) g/dL Hct (42-52) % MCV (80-100) fL MCH (25-34) pg MCHC (32-36) g/dL RDW Std Deviation (36.4-46.3) fL RDW Coeff of Samir (11.5-14.5) % Plt Count (130-400) K/uL MPV (7.4-10.4) fL Immature Gran % (Auto) % Neut % (Auto) % Lymph % (Auto) % [place] % (Auto) % Eos % (Auto) % Baso % (Auto) % Immature Gran # (Auto) (0.00-0.02) K/uL Neut # (Auto) (1.4-6.5) K/uL Lymph # (Auto) (1.2-3.4) K/uL [place] # (Auto) (0.11-0.59) K/uL Eos # (Auto) (0-0.5) K/uL Baso # (Auto) (0-0.2) K/uL PT (9.0-12.0) Seconds INR (0.9-1.1) APTT (21.0-31.0) Seconds PTT Ratio Sodium 141 (136-145) mmol/L Potassium 4.7 (3.5-5.1) mmol/L Chloride 110 H (98-107) mmol/L Carbon Dioxide 27 (21-32) mmol/L Anion Gap 4.0 (3-11) BUN 42 H (7-18) mg/dl Creatinine 1.22 (0.6-1.4) mg/dl Est Cr Clr Drug Dosing 62.7 ml/min Est GFR ( Amer) 67.3 Est GFR (Non-Af Amer) 58.0 BUN/Creatinine Ratio 34.5 H (10-20) Glucose 118 H (70-99) mg/dl Calcium 9.0 (8.5-10.1) mg/dl Total Bilirubin 0.5 (0.2-1) mg/dl AST 13 L (15-37) U/L ALT 30 (12-78) U/L Alkaline Phosphatase 53 (45-117) U/L Troponin I < 0.015 (0-0.045) ng/ml Total Protein 6.9 (6.4-8.2) gm/dl Albumin 3.8 (3.4-5.0) gm/dl Globulin 3.1 (2.5-4.0) gm/dl Albumin/Globulin Ratio 1.2 (0.9-2) POC Stool Occult Blood Positive A (Negative) Blood Type Antibody Screen
--- NOTE | 2019-05-11 16:14 | Electrocardiogram Report ---
Test Reason : Blood Pressure : / mmHG Vent. Rate : 088 BPM Atrial Rate : 088 BPM P-R Int : 118 ms QRS Dur : 092 ms QT Int : 384 ms P-R-T Axes : 051 -69 059 degrees QTc Int : 464 ms Normal sinus rhythm Left axis deviation Abnormal ECG When compared with ECG of 09-APR-2019 14:33, No significant change Confirmed by Jose Orlando ([id number]) on 05/11/2019 4:14:21 PM Referred By: Confirmed By:Jose Orlando
[2019-05-11] MEDS ORDERED: LORazepam 2 MG/4 ML VIAL IV PRN (17:12)
[2019-05-11] MEDS ORDERED: ACETAMINOPHEN 325 MG TAB PO PRN (17:12)
[2019-05-11] MEDS ORDERED: LORazepam 3 MG/6 ML VIAL IV PRN (17:12)
[2019-05-11] MEDS ORDERED: ATIVAN IV ALCOHOL WITHDRAWL IV PRN (17:12)
[2019-05-11] MEDS ORDERED: ONDANSETRON INJ 2 MG/ML 2 ML VIAL IV PRN (17:12)
[2019-05-11] MEDS ORDERED: chlordiazePOXIDE ALCOHOL WITHDRAWL 25MG PO STA (17:12)
[2019-05-11] MEDS ORDERED: LORazepam 1 MG/2 ML VIAL IV PRN (17:12)
[2019-05-11] MEDS ORDERED: SODIUM CHLORIDE 0.9% 250 ML IV PRN (17:12)
[2019-05-11] MEDS: PANTOprazole 40 MG in DEXTROSE 5% 100 ML IV SCH ×2 (17:20→22:06)
[2019-05-11] MEDS ORDERED: MULTI-VITAMIN INFUSION 10 ML, THIAMINE HCL 100 MG, FOLIC ACID 1 MG in SODIUM CHLORIDE 0... IV ONE (17:30)
[2019-05-11] MEDS: chlordiazePOXIDE HCl 25 MG CAP PO SCH ×2 (18:37→23:48)
[2019-05-11] MEDS ORDERED: SODIUM CHLORIDE 0.9% 1000ML 1,000 ML IV SCH (19:32)
[2019-05-11 21:19] LABS: Hematocrit (blood only) 34.3 % (42-52); Hemoglobin 11.4 g/dL (14.0-18.0)
[2019-05-12] MEDS: PANTOprazole 40 MG in DEXTROSE 5% 100 ML IV SCH ×4 (01:46→17:15)
[2019-05-12] MEDS: chlordiazePOXIDE HCl 25 MG CAP PO SCH ×3 (06:00→17:17)
[2019-05-12 06:07] LABS: Hematocrit (blood only) 31.8 % (42-52); Hemoglobin 10.5 g/dL (14.0-18.0); Mean Corpuscular Hemoglobin 31.8 pg (25-34); Mean Corpuscular Volume 96.4 fL (80-100); Mean Platelet Volume 9.8 fL (7.4-10.4); Platelet Count 156 K/uL (130-400); RDW Coefficient of Variation 13.7 % (11.5-14.5); RDW Standard Deviation 48.2 fL (36.4-46.3)
[2019-05-12 06:49] LABS: BUN Creatinine Ratio 28.2 (10-20); Calcium 7.9 mg/dl (8.5-10.1); Est GFR (African American) 95.9; Est GFR (Non-African American) 82.7; Potassium 3.9 mmol/L (3.5-5.1)
--- NOTE | 2019-05-12 08:54 | Gastroenterology Progress Note ---
Date of Service May 12, 2019 Assessment & Plan (1) Melena: 74 year old male admitted from the ED for hypotensive episode, ongoing dark black stools x 72 hours. He is awake, alert and oriented answering questions appropriately. He adamently denies any hematemesis, coffee ground emesis or BRBPR. HGB 12.8 from baseline 15 w/ BUN elevation. He has remained hemodynamically stable overnight without further evidence of active GIB, last BM was over 24hours ago. NPO for EGD 05/12/2019 IV PPI bolus and drip No NSAIDs Trend H&H Monitor and document all GI output Transfuse HGB < 8 ETOH cessation was recommended ETOH withdrawal protocol Thank you for allowing us to participate in the care of this patient. Please call with any acute changes, questions or concerns. Please see addendum below with additional recommendation from my supervising physician. Admission and Anticipated Discharge Date Admission Date: May 11, 2019 Supervising Physician Co-Signing Physician Notes I have seen and examined the patient and discussed the management with KELLY Mo. No further melena. No other complaints. PE - well nourished male in nad, HEENT - perrla, CV- rrr no mrg, Pulm - CTAB, Abd - soft nt nd +bs Labs reviewed EGD for evaluation of melena - rule out pudz, gastritis, esophagitis. Subjective pt was seen and evaluated, chart reviewed no acute events noted overnight no further episdoes of melena no ugi symptoms HGB drop to 10.5 no lightheadedness, dizziness, CP, SOB Review of Systems Constitutional: no fever, no body aches and no weakness Respiratory: no cough, no dyspnea and no pain on inspiration Cardiovascular: no chest pain, no radiating jaw, neck or arm pain and no dyspnea on exertion Gastrointestinal: no abdominal pain, no coffee ground emesis, no hematemesis, no blood in stools and no melena Physical Exam Constitutional: well developed and well nourished; no acute distress and not ill appearing Neck: normal visual inspection Respiratory: normal respiratory effort, lungs clear to auscultation Cardiovascular: Rate/Rhythm: regular rate and regular rhythm Gastrointestinal (Abdomen): normal bowel sounds, soft, nontender, no hepatosplenomegaly Skin: no rashes, warm and dry Results & Data ([place]) Vital Signs (Past 12 Hours) Vital Signs Temp Pulse Resp BP Pulse Ox 05/12/19 07:00 36.7 C 77 17 119/72 94 05/12/19 04:08 36.5 C 74 20 112/71 95 05/11/19 23:54 36.6 C 75 20 118/68 95
[2019-05-12] MEDS ORDERED: PROPOFOL IV EMULSION 10 MG/ML 20 ML VIAL IV ONE (09:31)
[2019-05-12] MEDS ORDERED: LIDOCAINE HCL 2% 2 ML VIAL/AMP(20MG/ML) INFIL ONE (09:31)
--- NOTE | 2019-05-12 09:48 | Anesthesiology Consultation ---
Date of Service May 12, 2019 Assessment & Plan ASA ASA2 Proposed Anesthesia Anesthesia Type: MAC Risk / Benefits Reviewed With: PT / POA / Parent / Guardian, Accepts Plan and Informed Consent Obtained History Surgery Operation Date: 05/12/19 17:00 Proposed Procedures p Esophagogastroduodenoscopy Dr. Tootie Sommers M.D. Height/Weight Height: 5 ft 10 in Weight: 96.6 kg Allergies Allergy/AdvReac Type Severity Reaction Status Date / Time No Known Drug Allergies Allergy Unknown . Verified 05/12/19 09:50 peanut Allergy Unknown Swelling Verified 05/12/19 09:50 of Lip/Tongue/Throat pineapple Allergy Unknown Verified 05/12/19 09:50 Medications Home Medications Medication Instructions Recorded Confirmed Last Taken allopurinol [Zyloprim] 300 mg PO DAILY 05/27/18 05/11/19 Unknown atorvastatin 20 mg PO QPM 05/27/18 05/11/19 Unknown losartan [Cozaar] 100 mg PO DAILY 05/27/18 05/11/19 Unknown vitamin B complex 1 tab PO DAILY 05/27/18 05/11/19 Unknown Active Medications Generic Name Dose Route Start Last Admin Trade Name Freq PRN Reason Stop Dose Admin Chlordiazepoxide HCl 25 mg 05/11/19 18:00 05/12/19 06:00 Librium PO 05/13/19 17:59 25 mg Q6H MARITA Administration Taper Pantoprazole Sodium 40 mg/ 100 mls @ 20 mls/hr 05/11/19 16:15 05/12/19 06:54 Dextrose IV 06/10/19 16:14 20 mls/hr Q5H MARITA Administration NPO Date Last Intake of Fluids: 05/12/19 Time Last Intake of Fluids: 00:00 Date Last Intake of Solids: 05/12/19 Time Last Intake of Solids: 00:00 Past Medical History Medical History (Updated 05/11/19 @ 16:27 by Dee Buckley PA-C) Gout (Chronic) Hyperlipidemia (Chronic) Hypertension (Chronic) Psoriasis (Chronic) Exercise / Class Metabolic Activity II 4-5 Yardwork/Stairs/Walk up hill Past Family History Family History (Updated 05/11/19 @ 16:28 by Dee Buckley PA-C) Other Alzheimer disease Asthma Past Surgical History Surgical History (Updated 05/11/19 @ 16:29 by Dee Buckley PA-C) H/O hernia repair History of colonoscopy History of esophagogastroduodenoscopy (EGD) Hx of tonsillectomy Past Anesthesia History No Hx of Anesthesia Complications and No Family Hx of Anesthesia Complications History of PONV No Hx of PONV and No Hx of Motion Sickness Social History Smoking Status: Former smoker Smoking End Date: 1993 Hx Alcohol Use: Yes Alcohol type: hard liquor alcohol intake frequency: 3 or more drinks per day Hx Substance Use: No Review of Systems denies fever/cough/ colds/ chest pain/ SOB/ HAMMAD Constitutional: no fever and no chills Respiratory: no cough and no dyspnea denies HAMMAD Cardiovascular: no chest pain and no dyspnea on exertion Physical Exam Vital Signs Last Vital Signs Temp 36.7 C 05/12/19 07:00 Pulse 77 05/12/19 07:00 Resp 17 05/12/19 07:00 BP 119/72 05/12/19 07:00 Pulse Ox 94 05/12/19 07:00 ENMT Mouth: + chipped teeth; no TMJ abnormality and no dentition abnormality Thyromental Distance: > or= 3.5 Finger Breadths Mallampati Class: II Neck neck extension not limited Respiratory normal respiratory effort; no respiratory distress Auscultation: lungs clear to auscultation bilaterally Cardiovascular Rate/Rhythm: regular rate and regular rhythm Neurologic moves all extremities Psychiatric Orientation: alert and oriented x 3 Testing Laboratory Results 05/12/19 05:37 05/12/19 05:37 PT 10.4 Seconds (9.0-12.0) 05/11/19 14:08 INR 1.0 (0.9-1.1) 05/11/19 14:08 APTT 22.8 Seconds (21.0-31.0) 05/11/19 14:08 Blood Type O Positive 05/11/19 14:08 Antibody Screen NEGATIVE 05/11/19 14:08
[2019-05-12] MEDS ORDERED: ATROPINE SULFATE 0.1 MG/ML 10ML SYR IV PRN (10:01)
[2019-05-12] MEDS ORDERED: ePHEDrine sulfate 50 MG/ML AMP IV PRN (10:01)
[2019-05-12] MEDS ORDERED: PROMETHAZINE HCL 12.5 MG in SODIUM CHLORIDE 0.9% 50 ML IV PRN (10:01)
[2019-05-12] MEDS ORDERED: ONDANSETRON INJ 2 MG/ML 2 ML VIAL IV PRN (10:01)
[2019-05-12] MEDS ORDERED: fentaNYL citrate 100 MCG/2 ML VIAL IV PRN (10:01)
--- NOTE | 2019-05-12 10:26 | GI REPORT ---
Patient Name: Ricky Baez Procedure Date: 05/12/2019 10:13 AM Date of : 1945 Admit Type: Inpatient Age: 74 Gender: Male Attending MD: Naima Sommers M.d. Procedure: Upper GI endoscopy Providers: Naima Sommers M.d. Referring MD: Tosin Márquez NP, Dmitri Lynn Indications: Melena Medicines: Propofol per Anesthesia, Lidocaine Complications: No immediate complications. Estimated Blood Loss: Estimated blood loss: none. Procedure: Pre-Anesthesia Assessment: - Patient identification and proposed procedure were verified prior to the procedure by the physician, the nurse and the anesthesiologist. The procedure was verified in the pre-procedure area. - Prior to the procedure, a History and Physical was performed, and patient medications, allergies and sensitivities were reviewed. The patient's tolerance of previous anesthesia was reviewed. - The risks and benefits of the procedure and the sedation options and risks were discussed with the patient. All questions were answered and informed consent was obtained. - ASA Grade Assessment: II - A patient with mild systemic disease. After obtaining informed consent, the endoscope was passed under direct vision. Throughout the procedure, the patient's blood pressure, pulse, and oxygen saturations were monitored continuously. The Endoscope was introduced through the mouth and advanced to the second part of duodenum. The upper GI endoscopy was accomplished without difficulty. The patient tolerated the procedure well. Findings: The examined esophagus appeared normal. Localized mild inflammation characterized by erythema was found in the gastric antrum. Biopsies were taken with a cold forceps for Helicobacter pylori testing. The pathology specimen was placed into Bottle A. Verification of patient identification for the specimen was done by the physician and nurse using the patient's name and medical record number. Three non-bleeding superficial gastric ulcers with no stigmata of bleeding were found in the gastric antrum. Localized mild inflammation characterized by erythema was found in the duodenal bulb. The second portion of the duodenum was normal. Impression: - Normal esophagus. - Gastritis. Biopsied. - Non-bleeding gastric ulcers with no stigmata of bleeding. - Duodenitis. - Normal second portion of the duodenum. - No evidence of varices or phg were seen on today's examination. Recommendation: - Await pathology results. - Change IV PPI to 40 mg po BID, both prior to meal. - Continue BID PPI for 8 weeks. - Strict ethanol avoidance. - Repeat in egd in 8 weeks to assess for healing of ulcers. - Avoid NSAID's - use Tylenol instead for pain control. Naima Sommers M.D. Naima Sommers M.d. 05/12/2019 10:25:40 AM This report has been signed electronically. Note Initiated On: 05/12/2019 10:13 AM Number of Addenda: 0 I attest to the content of the Intraoperative Record and orders documented therein, exceptions below {[id number]}
--- NOTE | 2019-05-12 10:39 | Anesthesiology Progress Note ---
Date of Service May 12, 2019 Anesthesia Post Procedure Vital Signs Vital Signs: Temp Pulse Pulse Resp BP BP Pulse Ox 05/12/19 10:34 83 16 117/64 97 05/12/19 09:51 36.8 C 76 18 128/74 98 05/12/19 07:00 36.7 C 77 17 119/72 94 05/12/19 04:08 36.5 C 74 20 112/71 95 05/11/19 23:54 36.6 C 75 20 118/68 95 05/11/19 19:20 36.8 C 86 20 103/57 L 96 05/11/19 18:48 90 05/11/19 17:10 36.9 C 83 18 144/82 H 98 05/11/19 16:39 87 20 119/69 97 05/11/19 14:15 92 H 18 124/91 99 05/11/19 14:00 98 05/11/19 13:07 36.6 C 89 20 98/50 L 99 Transfer of Care Handoff Completed per policy Notes Mental Status: alert / awake / arousable and participated in evaluation Patient Amnestic to Procedure: Yes Nausea / Vomiting: adequately controlled Pain: adequately controlled Airway Patency, RR, SpO2: stable & adequate BP & HR: stable & adequate Hydration State: stable & adequate Anesthetic Complications: no major complications apparent and Pt Satisfied with anesthetic care
--- NOTE | 2019-05-12 18:16 | Hospitalist Progress Note ---
Date of Service May 12, 2019 Assessment & Plan (1) Acute upper gastrointestinal bleedin days of melena. Uses aspirin a few days a week; consumes alcoholic beverages. Hypotensive in clinic. BP improved with fluid resuscitation. Received IV pantoprazole. GI consulted. EGD revealed 3 nonbleeding gastric ulcers, gastritis, duodenitis. Bx done- results pending. PPI BID x 8 weeks and f/u EGD recommended. Advised to avoid aspirin, NSAID's, alcohol. (2) Acute blood loss anemia: Hgb 15.9 on 04/09/19, 12.8 at time of admission, and fell to 10.5. Acute blood loss anemia secondary to UGI bleed. No need for transfusion. Recheck H/H in clinic. (3) Hypertension: Hemodynamically stable after fluid resuscitation. (4) Alcohol use: No signs / symptoms of withdrawal. Importance of abstinence discussed. (5) DVT prophylaxis: SCD's. Ambulating. (6) Discharge planning issues: Discharge to home. Internal Medicine follow-up with Dr. Ruby. Follow-up EGD with Leroy MOELLER in about 8 weeks. Admission and Anticipated Discharge Date Admission Date: May 11, 2019 Subjective Recheck for UGI bleed. Doing well. No further melena. No abdominal pain, nausea, vomiting. No chest pain, shortness of breath, lightheadedness. Would like to be discharged. Physical Exam Constitutional: no acute distress Respiratory: no respiratory distress Auscultation: lungs clear to auscultation bilaterally Cardiovascular: Rate/Rhythm: regular rate and regular rhythm Heart Sounds: no gallop, no murmur and no cardiac rub Vessels: no JVD Extremities: no calf tenderness and no edema Gastrointestinal (Abdomen): normal bowel sounds, soft, nontender, no hepatosplenomegaly Skin: no rashes, warm and dry Psychiatric: Orientation: alert and oriented x 3 Results & Data ([facility]) Vital Signs (Past 12 Hours) Vital Signs Temp Pulse Pulse Resp BP Pulse Ox 05/12/19 15:07 36.4 C L 84 18 115/65 94 05/12/19 11:57 36.4 C L 76 14 120/67 99 05/12/19 10:56 78 16 130/69 98 05/12/19 10:41 75 16 108/73 98 05/12/19 10:34 83 16 117/64 97 05/12/19 09:51 36.8 C 76 18 128/74 98 05/12/19 08:00 61 05/12/19 07:00 36.7 C 77 17 119/72 94 Laboratory Results 05/12/19 05:37 05/12/19 05:37
--- NOTE | 2019-05-13 09:30 | Discharge Summary ---
Date of Service Date of Admission: 05/11/19 Date of Discharge: 05/12/19 Admission HPI Per Admitting Provider Pt is 74 y/o M with PMH HTN, dyslipidemia, gout, prediabetes, essential tremor presented to ER with C/O melena x 3 days. States several days ago had loose stool and 3 days ago took Imodium. After he took Imodium he noticed black tarry stools. Reports had dizziness this morning. Pt was seen in PCP office today and was found to be hypotensive with BP 54/38. Reported pt was given NSS by EMS and upon ER arrival BP: 98/50. Pt denies any abdominal pain, vomiting. Reports takes Aspirin 325mg 3-4 times a week. Also drinks 8 ounces liquor daily. Drinks 1 can cola daily. Today had smoothie for breakfast, nothing to eat since. Denies history alcohol withdrawal, withdrawal seizures, DT's. Denies fever/chills, diaphoresis, SCHMIDT, syncope, vision changes, neck pain, CP, SOB, orthopnea, palpitations, cough, sore throat, choking, otalgia, rhinorrhea, abdominal pain, paresthesias, weakness, extremity weakness, extremity edema, rashes, urinary symptoms. H/O Colonoscopy 04/26/2019: several polyps removed H/O EGD in 2011: Erosive gastropathy. Likely secondary to Aspirin use. Principal Diagnosis upper gastrointestinal bleeding due to gastric ulcers OTHER ACUTE DIAGNOSES: acute blood loss anemia Discharge Data Allergies Allergy/AdvReac Type Severity Reaction Status Date / Time No Known Drug Allergies Allergy Unknown . Verified 05/12/19 09:50 peanut Allergy Unknown Swelling Verified 05/12/19 09:50 of Lip/Tongue/Throat pineapple Allergy Unknown Verified 05/12/19 09:50 Consultations 05/11/19 15:21 ED Decision to Admit Stat 05/11/19 17:12 Consult Gastroenterology Routine Procedures Performed Operation Date: 05/12/19 17:00 Actual Procedures p EGD Biopsy Cytology - Naima Sommers M.D. Hospital Course (1) Acute upper gastrointestinal bleedin days of melena. Uses aspirin a few days a week; consumes alcoholic beverages. Hypotensive in clinic. BP improved with fluid resuscitation. Received IV pantoprazole. GI consulted. EGD revealed 3 nonbleeding gastric ulcers, gastritis, duodenitis. Bx done- results pending. PPI BID x 8 weeks and f/u EGD recommended. Advised to avoid aspirin, NSAID's, alcohol. (2) Acute blood loss anemia: Hgb 15.9 on 04/09/19, 12.8 at time of admission, and fell to 10.5. Acute blood loss anemia secondary to UGI bleed. No need for transfusion. Recheck H/H in clinic. (3) Hypertension: Hemodynamically stable after fluid resuscitation. (4) Alcohol use: No signs / symptoms of withdrawal. Importance of abstinence discussed. (5) DVT prophylaxis: SCD's. Ambulating. (6) Discharge planning issues: Discharge to home. Internal Medicine follow-up with Dr. Ruby. Follow-up EGD with Leroy MOELLER in about 8 weeks. Total Time Total Time Spent Total Time Spent (In Minutes): 30 Discharge Plan Discharge Items Patient Disposition: Home - Self-Care Reason For Visit: gastrointestinal bleeding Discharge Diagnosis: stomach ulcers gastritis and duodenitis- inflammation of stomach and first part of small intestine anemia Activity: Resume your previous activity Non-emergency contact: Primary Care Provider, Hospitalist and Associate Genetics Professor Call non-emergency contact if: you have any medication questions and your symptoms worsen Follow-up/Referrals: Nicanor Ruby MD [Primary Care Provider] - 05/17/19 1:00 pm (05[facility]17/2019 1[facility] Diet: Heart Healthy and Low Fiber Diet Comment: low fiber diet for 1 week Addtl Attending Provider Instructions: MEDICATION CHANGES: Do not take any products that contain aspirin or anti-inflammatory medications like ibuprofen (Advil or Motrin), naproxen (Aleve), and similar products. OK to take Extra Strength Tylenol 2 pills every 8 hours as needed for pain. Take omeprazole (Prilosec) 40 mg twice a day for stomach ulcers. SUMMARY OF TEST RESULTS: Red blood count was low because of bleeding ulcers. Hemoglobin level day of discharge was 10.5. EGD (upper endoscopy) to look in your stomach showed stomach ulcers as well as irritation of stomach and first part of small intestine. RECOMMENDATIONS FOR FOLLOW-UP: Please have Dr. Ruby check blood count (hemoglobin level) when you see him in clinic. Repeat EGD (upper endoscopy) in 8 weeks to make certain that ulcers have healed up. GI Department will schedule appointment for you. OTHER INSTRUCTIONS: Do not drink alcoholic beverages. Seek medical attention if you have: * temperature above 101 * chest pain or trouble breathing * abdominal pain, nausea, vomiting * diarrhea, dark stools or bloody stools * extreme lightheadedness or weakness * any unanswered questions or concerns Call 911 if symptoms are severe. Please take good care of yourself. Call if you have any questions or problems. You can reach a [facility] hospitalist on duty at [facility] 24 hours a day by calling [phone]. My cell # is [phone]. Pending Studies at Discharge: Yes (stomach biopsy) Stand-Alone Forms: My [facility], Smoking Cessation Medications and DC Order Prescriptions: New omeprazole 40 mg capsule,delayed release(DR/EC) 40 mg PO BID Qty: 60 RF: 1 Continued allopurinol [Zyloprim] 300 mg tablet 300 mg PO DAILY RF: 0 atorvastatin 20 mg tablet 20 mg PO QPM RF: 0 vitamin B complex Tablet 1 tab PO DAILY RF: 0 losartan [Cozaar] 100 mg tablet 100 mg PO DAILY RF: 0 Discharge Orders: Discharge Order (Routine); Ordered 05/12/19 Ordered By: Dmitri Lynn Admission Data Admit Date/Time: 05/11/19 15:46 Attending Provider: Dmitri Lynn Admit Provider: Stefan Atwood Primary Care Provider: Nicanor Ruby Other Providers: Stefan Atwood ; Naima Sommers Other Interventions: Discharge Summary Assessment (RN) Last Done: 05/12/19 18:32 DC Date/Time DO NOT enter until pt leaves facility: 05/12/19 19:20
[2019-05-14] MEDS ORDERED: chlordiazePOXIDE HCl 5 MG CAP PO SCH (21:00)
== END 2019-05-12 19:20 | disposition home or self-care (01) ==
LOC: 2S 12:57 → ED 12:57 → SUATTDRO 15:46 → 2S 16:34